=== PATIENT | male | born 1955 | race Caucasian/White ===

== ENCOUNTER 2023-09-22 13:45 | Inpatient (IN) | payer MEDICARE, MEDICAID, SELFPAY ==
[2023-09-22] VITALS (17 sets, daily range): BP systolic 94–166; BP diastolic 46–86; PULSE 59–101; RESP 16–20; TEMP 36.5–37.1; O2SAT 95–97; BMI 181.2; BMI 27.8
[2023-09-22] MEDS: HEPARIN 1,000 UNITS/500ML NS (CATH LAB) 3000 UNIT IV (14:42)
[2023-09-22] MEDS: diphenhydrAMINE 50MG/ML VIAL 50 MG IV (14:42)
[2023-09-22] MEDS: LIDOCAINE 1% 10ML MDV 20 ML IJ (14:42)
[2023-09-22] MEDS: HEPARIN 1,000 UNITS/ML 10ML VIAL (CATH LAB) 10000 UNIT IV (14:42)
[2023-09-22] MEDS: NITROGLYCERIN 800MCG/8ML SYR (CATH LAB) 800 MCG IA (14:42)
[2023-09-22] MEDS: VERAPAMIL 2.5MG/ML 2ML VIAL 2.5 MG IV (14:42)
[2023-09-22] MEDS: 0.9 % SODIUM CHLORIDE 500 ML 25 ML IV (14:43)
[2023-09-22] MEDS: MIDAZOLAM HCL 1MG/1ML 5ML VIAL 1 MG IV (14:43)
[2023-09-22] MEDS: FENTANYL 100MCG/2ML VIAL 50 MCG IV (14:43)
--- NOTE | 2023-09-22 14:47 | IR_ITS ---
APPROVED REPORT Patient Location: Emergent Machine Adjuster: LUIS FERNANDO Ramos RT (R) PROCEDURES Left heart catheterization Left ventriculogram Selective coronary angiogram Mechanical thrombectomy to the mid LAD Drug-eluting stent deployment to the proximal mid and distal LAD in a contiguous manner with 4 contiguous drug-eluting stents Drug-eluting stent deployment to the ostial proximal ramus intermedius Attempted angioplasty of a chronically occluded dominant right coronary INDICATION Acute anterior ST elevation myocardial infarction, Coronary artery disease Informed consent was obtained prior to the procedure. COMPLICATIONS NONE Estimated Blood Loss: LESS THAN 10 ML TECHNIQUE One percent lidocaine used to anesthetize the right anterior aspect of the wrist. The right radial artery was accessed via the Seldinger technique. A 6 Argentine sheath was placed in the right radial artery. 2.5 mg of Verapamil, 800 mcg of nitroglycerin, 1mg Lidocaine and 5000 U Heparin were given through the arterial sheath. The papa catheter was also used to perform left heart catheterization, left ventriculogram and selective coronary angiogram. At the end the diagnostic angiogram the guide catheter was placed in the left main artery followed by Choice PT extra-support wire being pushed through the LAD occlusion. A 2.5 mm balloon was used to predilate the stenosis in the LAD. A 3 mm x 30 mm [place] frontier stent was deployed in the proximal to mid LAD reducing the occlusion. Following this a 2.5 x 38 mm [place] frontier stent was placed distal to the for stent yet still overlapping the stent deployed at 12 bc. The balloon was brought back and deployed at 22 bc to mesh the 2 stents. An additional 2 mm x 30 mm Karl[place] frontier stent was placed distal to the 2.5 mm stent yet still overlapping and deployed at 14 bc. The balloon was brought back and deployed at 22 bc to mesh the 2 stents. An additional 4 mm x 15 mm Karlos frontier stent was placed in the ostial proximal LAD and deployed at 20 bc. The balloon was advanced and deployed at 20 bc to further post dilate the proximal and midportion of the 3 mm stent. An additional wire was placed into the jailed ramus intermedius and a 2 mm balloon was used to open the struts going into the ramus intermedius. A 3 mm x 12 mm [place] frontier stent was deployed at 20 bc in the ostial proximal segment of the ramus intermedius which extended back into the LAD. A 4 mm x 12 mm compliant balloon was deployed at 18 bc in the proximal and mid LAD to push the struts of the ramus intermedius out of the LAD proper. Excellent angiographic results were obtained. APRIL 0 flow was present down the LAD at the beginning of the procedure with APRIL-3 flow at the end of the procedure. Likewise the ramus intermedius had APRIL-3 flow before and after the procedure. Following this 800 mcg of intracoronary nitroglycerin was administered into the LAD system. The apparatus was removed and the guide catheter was placed on the right coronary artery. A Choice PT extra-support wire was used to push against the occlusion. A 2.0 x 12 mm balloon was then advanced however the wire and balloon would not push through the chronically occluded right coronary artery. After it was apparent this was a chronic occlusion the apparatus was removed the sheath was removed and hemostasis was achieved using TR banding patient was transferred to the postop holding in stable condition ANGIOGRAPHIC RESULTS The left main artery Normal The left anterior descending artery Initially had 50% stenosis followed by an acute occlusion distal to a large septal survey director. Following revascularization the entire LAD was widely patent all the way into the apex. Large septal survey director collateralized the distal right coronary artery and posterior descending artery. A large ramus intermedius had a proximal 80 to 90% stenosis preprocedure after procedure the ramus intermedius was widely patent The circumflex artery Is nondominant yet still large and gives rise to a medium sized first obtuse marginal artery which has mild 30% stenosis. 2 medium to large second and third obtuse marginal arteries are widely patent The right coronary artery Is dominant and occluded immediately distal to a large RV marginal branch. The distal vessel fills via right to right collaterals as well as [id number] collaterals The MART ventriculogram reveals Dilated ventricle mid anterior apical akinesis estimated ejection fraction 20% The left ventricular end-diastolic pressure 20 mmHg IMPRESSION Acute anterior ST elevation myocardial infarction as described above with successful reconstruction and revascularization of the proximal mid and distal LAD reducing 100% occlusion to 0% with 4 contiguous drug-eluting stents Successful stenting of a severely diseased ostial ramus intermedius severe to critical disease reduced to 0% with 1 drug-eluting stent Attempted angioplasty of a chronically occluded right coronary artery which did not open the chronic occlusion therefore the vessel was left alone and remains chronically occluded and chronically collateralized via right to right and left to right collaterals Severe left ventricular dysfunction with large regional wall motion abnormality Borderline elevated LVEDP PLAN 1. Brilinta 90 twice daily plus aspirin 81 mg daily 2. Start Entresto once hemodynamically stable 3. Avoid diuretics at this point given normal to slightly elevated LVEDP 4. High intensity statin with goal LDL of 55 5. Echocardiogram tomorrow morning 6. Arrange for LifeVest prior to discharge home 7. Start beta-blockers after patient on stable dose of Entresto 8. Supportive care 9. Avoidance of tobacco products Electronically signed by : Vinh Gutierrez MD 09/22/2023 15:01:17
[2023-09-22] MEDS: IOPAMIDOL-370 (76%);100ML BOTTLE 205 ML IV (15:18)
[2023-09-22 15:19] LABS: CATHL Activated Clotting Time 254 SEC (74-125)
--- NOTE | 2023-09-22 15:25 | PC.NURSE ---
arrived by ricker from [employer] [facility]
--- NOTE | 2023-09-22 15:54 | P.HP_ITS ---
History of Present Illness *Admission Date: 09/22/23 *Reason for visit:: chest pain *History of present illness: Mr. Sanderson is a 68-year-old male with past medical history of previous MIs approximately 16 and 20 years ago with [address] already, CAD, depression, diabetes, hyperlipidemia, HIV. He presented to outside hospital with onset of chest pain. Found to be having a STEMI and was transferred to [facility] for further management. Taken urgently to the Service Establishment Attendant with intervention and placement of 4 stents. Medicine consulted for admission after successful PCI. Further history elicited from patient after arriving to the floor. States that he began to have pain yesterday after mowing. [place] like a burning in his chest, took some Maalox and it resolved. This is around dinnertime per his report. He had pain come back last night that kept him up most of the night. Unclear the exact timeframe of when that began but the pain started as burning in his epigastric region and then spread to pressure-like sensation across his chest and radiated up to his left jaw. He tried to sleep it off but could not go to sleep. Came to the ER at [place] this morning because of the persistent pain. Found to be having a heart attack with EKG showing acute MN and anterior and inferior leads. High-sensitivity troponin of 18,500. STEMI alert was activated and was taken straight to the Service Establishment Attendant at [facility] for intervention. He denies any chest pain at this time. No shortness of breath. Stable on room air. States he is feeling better. No nausea or upset stomach. Denies any confusion. Alert and oriented x 4. Very clear during discussion that his grand daughter is his POA and surrogate if he is unable to make decisions for himself. Patient was loaded with 324 mg of aspirin and 90 mg of Brilinta in the ER at [facility]. [facility] Disclaimer: The information contained in this section may have been updated after the patient was seen, as this information can be updated by other users. Medical History Hyperlipidemia Hypertension Myocardial infarct Diabetes mellitus CVA (cerebral vascular accident) CAD (coronary artery disease) History of left heart catheterization (LHC) Surgical History H/O inguinal hernia repair History of cholecystectomy History of appendectomy History of left hip replacement History of knee replacement Family History Other No significant family history Social History Smoking Status: Current every day smoker alcohol intake: current current occupational status: retired Travel in the last 8 weeks: None Review of Systems Review of Systems Review of systems (narrative): 14 point review of systems performed, pertinent positives and negatives as per [facility] Meds Home Medications and Allergies Home Medications Medication Instructions Recorded Confirmed Type atorvastatin 80 mg tablet 80 mg PO DAILY 09/22/23 09/22/23 History bupropion HCl 150 mg tablet,12 hr 150 mg PO DAILY 09/22/23 09/22/23 History sustained-release dolutegravir 50 mg-lamivudine 300 1 tab PO DAILY 09/22/23 09/22/23 History mg tablet (Dovato) donepezil 5 mg tablet 5 mg PO DAILY 09/22/23 09/22/23 History ezetimibe 10 mg tablet 10 mg PO DAILY 09/22/23 09/22/23 History famotidine 20 mg tablet 20 mg PO BID 09/22/23 09/22/23 History fenofibrate 54 mg tablet 54 mg PO DAILY 09/22/23 09/22/23 History hydrochlorothiazide 25 mg tablet 25 mg PO DAILY 09/22/23 09/22/23 History metformin 500 mg tablet,extended 500 mg PO BID 09/22/23 09/22/23 History release 24 hr methocarbamol 500 mg tablet 500 mg PO BID 09/22/23 09/22/23 History mirtazapine 7.5 mg tablet 7.5 mg PO DAILY 09/22/23 09/22/23 History oxybutynin chloride 5 mg 5 mg PO DAILY 09/22/23 09/22/23 History tablet,extended release 24 hr quetiapine 100 mg tablet 100 mg PO DAILY 09/22/23 09/22/23 History quetiapine 50 mg tablet 50 mg PO DAILY 09/22/23 09/22/23 History tamsulosin 0.4 mg capsule 0.4 mg PO DAILY 09/22/23 09/22/23 History New Prescriptions to Start Prescriptions: Allergies Allergy/AdvReac Type Severity Reaction Status Date / Time amantadine Allergy Mild Verified 09/22/23 14:02 abciximab [From Reopro] Allergy Verified 09/22/23 16:26 cefaclor [From Ceclor] Allergy Verified 09/22/23 16:26 ofloxacin [From Floxin] Allergy Verified 09/22/23 16:26 Penicillins Allergy Verified 09/22/23 16:26 vancomycin Allergy Verified 09/22/23 16:26 Exam Data for Last 24 hours Vital signs and Labs for Last 24 Hours: Temp Pulse Resp BP Pulse Ox O2 Del Method 97.9 F 82 18 100/59 L 95 Room Air 09/22/23 15:00 09/22/23 15:15 09/22/23 15:15 09/22/23 15:15 09/22/23 15:15 09/22/23 15:15 Laboratory Results - last 24 hr 09/22/23 14:30: Activated Clotting Time 254 H* I & O for Last 24 hours: Intake & Output 09/19/23 09/20/23 09/21/23 09/22/23 23:59 23:59 23:59 23:59 Weight 78.103 kg Constitutional Constitutional: no acute distress, average body habitus, chronically ill appearing and cooperative *Routine HEENT Exam Head: Present normocephalic Eye: Present EOMI and PERRL ENT: Present mucous membranes moist Comments: Edentulous *Routine Neck Exam Neck: Present supple; Absent lymphadenopathy *Routine Respiratory Exam Respiratory: Present CTA bilaterally; Absent rhonchi, wheezes or crackles *Routine Cardiovascular Exam Cardiovascular: Present RRR *Routine Abdominal Exam Abdominal: Present soft and normoactive bowel sounds; Absent tenderness *Routine Rectal Exam Rectal:: deferred *Routine Genitalia Exam Genitalia:: deferred *Routine Extremities Exam Extremities: Absent cyanosis, clubbing or edema *Routine Skin Exam Skin: Present warm; Absent rash *Routine Neurological Exam Neurological: Present alert, oriented X3 and moving all extremities; Absent altered mental status Routine Psychiatric Exam Psychiatric: Present normal affect Assessment and Plan *Assessment and plan (1) STEMI (ST elevation myocardial infarction): Status: Acute Category: Medical Code(s): I21.3 - ST elevation (STEMI) myocardial infarction of unspecified site (2) CAD (coronary artery disease): Status: Acute Category: Medical Code(s): I25.10 - Atherosclerotic heart disease of [place] coronary artery without angina pectoris (3) Depression: Status: Chronic Category: Medical Code(s): F32.A - Depression, unspecified (4) HIV (human immunodeficiency virus infection): Status: Chronic Category: Medical Code(s): B20 - Human immunodeficiency virus [HIV] disease (5) HLD (hyperlipidemia): Status: Acute Category: Medical Code(s): E78.5 - Hyperlipidemia, unspecified (6) Diabetes mellitus: Status: Chronic Category: Medical Code(s): E11.9 - Type 2 diabetes mellitus without complications (7) Tobacco use disorder: Status: Acute Category: Medical Code(s): F17.200 - Nicotine dependence, unspecified, uncomplicated Plan 68-year-old male with previous history of MIs, CAD, depression, HIV, diabetes, hyperlipidemia. Presented to outside hospital with STEMI. Was transferred to [facility] for intervention. Taken to the Service Establishment Attendant with placement of 5 stents. Achieved improved flow. Necessitating admission and monitoring for the next 48 hours. Discussed case with cardiology, request admission for monitoring on telemetry and given high risk of cardiac arrhythmias. Medicine agreed to admit for further management. Problems addressed as follows: STEMI CAD hyperlipidemia -Presented with STEMI, ST elevations and inferior and anterior leads. Found to have lesions in the LAD. 5 stents placed. See cath report for full details. - Continue aspirin 81 mg daily and Brilinta 90 mg twice daily -Cardiology consulted and assisting with care -Necessitates monitoring for at least 48 hours on telemetry -Continue high intensity statin 80 mg Lipitor. -Lipid panel ordered for the morning. CBC, CMP, magnesium ordered for the morning. -Echo pending in the morning -Will consider addition of goal-directed therapies including Entresto and beta- blockers pending echo findings and stability of cardiac function over the coming days. History of HIV: continued Dovato per home regimen, reports well-controlled with undetectable viral load. Compliant with medication. Positive for over 30 years History of diabetes on metformin, A1c 5.5, well-controlled, TSH pending. Sliding scale insulin with fingersticks ACHS. Resume metformin 500 mg twice daily History of depression and sleep disorder: Will new Seroquel, Wellbutrin, mirtazapine Continue donepezil for memory Initiate pantoprazole for GERD/GI protection. Takes famotidine at home. Tobacco use disorder: Smokes 7 cigarettes a day. Initiate on nicotine patch daily 14 mg as needed Discussion about surgery decision maker, his granddaughter is his POA. And does not want anyone to know his medical history or situation outside of his granddaughter, himself, and his care team. Explicit about the information that he wants shared with family. Full code Cardiac diet Heparinized in Service Establishment Attendant
[2023-09-22 16:57] LABS: Basophils # 0.2 K/mm3 (0-0.2); Basophils % 1.7 % (0.1-2.0); Eosinophils # 0.1 K/mm3 (0.0-0.4); Eosinophils % 0.7 % (0.1-12.0); Hematocrit 42.3 % (42.0-52.0); Hemoglobin 13.8 g/dL (14.1-18.0); Lymphocytes # 2.4 K/mm3 (0.7-4.5); Lymphocytes % 22.7 % (10-50); Mean Corpuscular HGB Conc 32.7 g/dL (31.8-35.4); Mean Corpuscular Hemoglobin 29.9 pg (27.0-31.2); Mean Corpuscular Volume 91.3 fl (80-94); Mean Platelet Volume 8.5 fl (7.4-10.4); Monocytes # 0.6 K/mm3 (0.1-1.0); Monocytes % 5.3 % (1.7-9.3); Neutrophils # 7.4 K/mm3 (1.8-7.8); Neutrophils % 69.5 % (37.0-80.0); Platelet Count 145 K/mm3 (142-424); Red Blood Count 4.63 M/mm3 (4.60-6.20); Red Cell Distribution Width 15.1 % (11.5-17.5); White Blood Count 10.6 K/mm3 (4.8-10.8)
[2023-09-22 17:04] LABS: Chloride 103 mmol/L (98-107); Potassium 3.6 mmoL/L (3.5-5.1); Sodium 135 mmol/L (136-145)
[2023-09-22 17:07] LABS: Anion Gap 12.6 mEq/L (5-15); Blood Urea Nitrogen 14 mg/dl (9-20); Carbon Dioxide 23 mmol/L (22.0-30.0); Creatinine Clearance Estimated 78 mL/min (50-200); Estimated Glomerular Filt Rate 96 ml/min (>60); GFR (African American) 116 ML/MIN (>60)
[2023-09-22 17:08] LABS: Calcium 9.2 mg/dl (8.4-10.2); Glucose 195 mg/dl (74-100)
[2023-09-22 17:12] LABS: Hemoglobin A1C 5.5 % (4.0-6.0)
[2023-09-22 17:13] LABS: POC Glucose,Bedside 184 (70-110)
[2023-09-22] MEDS: humaLOG 100 UNITS/ML 3ML VIAL (SSI) SQ (17:14)
[2023-09-22] MEDS: NICOTINE 14MG/24HRS PATCH 14 MG TD (17:14)
[2023-09-22 17:38] LABS: Thyroid Stimulating Hormone 1.34 uIU/mL (0.465-4.68)
--- NOTE | 2023-09-22 18:51 | PC.NURSE ---
1700 2 ml of air removed, no hematoma noted, no bleeding noted 1715 2 ml of air removed, no hematoma noted, no bleeding noted 1745 2 ml of air removed, no hematoma noted, no bleeding noted 1800 2 ml of air removed, no hematoma noted, no bleeding noted 1815 2 ml of air removed, no hematoma noted, no bleeding noted 1830 2 ml of air removed, no hematoma noted, no bleeding noted 1845 2 ml of air removed, no hematoma noted, no bleeding noted
[2023-09-22 20:41] LABS: POC Glucose,Bedside 130 (70-110)
[2023-09-22] MEDS: SACUBITRIL/VALSARTAN 24-26MG TABLET 1 EACH PO (21:11)
[2023-09-22] MEDS: ATORVASTATIN 40MG TABLET 80 MG PO (21:12)
[2023-09-22] MEDS: TAMSULOSIN 0.4MG CAPSULE 0.400000000000000022 MG PO (21:12)
[2023-09-22] MEDS: PATIENT'S OWN HOME MEDICATION (Quetiapine 50 mg tablet) 50 EACH PO (21:13)
[2023-09-22] MEDS: PANTOPRAZOLE 40MG TABLET 40 MG PO (21:13)
[2023-09-22] MEDS: PATIENT'S OWN HOME MEDICATION (Mirtazapine 7.5 mg tablet) 7.5 EACH PO (21:13)
[2023-09-23] VITALS (8 sets, daily range): BP systolic 97–121; BP diastolic 60–75; PULSE 90–104; RESP 16–18; TEMP 36.6–37.2; O2SAT 90–93; BMI 26.9
[2023-09-23] MEDS: TRAMADOL 50MG TABLET 50 MG PO (00:10)
--- NOTE | 2023-09-23 04:27 | PC.NURSE ---
Patient has had a good night. Patient did complain on pain at the cath site. Site was observed and found no bleeding, pulse were +2, and no hematoma. Provider was notified and medication was placed. No other complaints. Family has remained at bedside
[2023-09-23] MEDS: humaLOG 100 UNITS/ML 3ML VIAL (SSI) SQ ×3 (05:34→16:51)
[2023-09-23 05:41] LABS: POC Glucose,Bedside 181 (70-110)
[2023-09-23 06:14] LABS: Basophils # 0.1 K/mm3 (0-0.2); Basophils % 0.6 % (0.1-2.0); Eosinophils # 0.1 K/mm3 (0.0-0.4); Eosinophils % 0.7 % (0.1-12.0); Hematocrit 43.4 % (42.0-52.0); Hemoglobin 14.4 g/dL (14.1-18.0); Lymphocytes # 2.2 K/mm3 (0.7-4.5); Lymphocytes % 24.1 % (10-50); Mean Corpuscular HGB Conc 33.2 g/dL (31.8-35.4); Mean Corpuscular Hemoglobin 30.5 pg (27.0-31.2); Mean Corpuscular Volume 91.9 fl (80-94); Mean Platelet Volume 8.8 fl (7.4-10.4); Monocytes # 0.8 K/mm3 (0.1-1.0); Monocytes % 9.1 % (1.7-9.3); Neutrophils # 5.9 K/mm3 (1.8-7.8); Neutrophils % 65.5 % (37.0-80.0); Platelet Count 166 K/mm3 (142-424); Red Blood Count 4.72 M/mm3 (4.60-6.20); Red Cell Distribution Width 15.3 % (11.5-17.5)
[2023-09-23 06:24] LABS: Alanine Aminotransferase 66 U/L (12-78); Albumin Level 4.3 g/dl (3.5-5.0); Albumin/Globulin Ratio 1.5 (1.1-1.8); Alkaline Phosphatase 78 U/L (38-126); Anion Gap 13.5 mEq/L (5-15); Aspartate Amino Transferase 230 U/L (17-59); Bilirubin,Total 1.2 mg/dl (0.2-1.3); Blood Urea Nitrogen 18 mg/dl (9-20); Calcium 9.3 mg/dl (8.4-10.2); Carbon Dioxide 25 mmol/L (22.0-30.0); Chloride 100 mmol/L (98-107); Chol/HDL Ratio 4.1 (1-3.5); Cholesterol 111 mg/dl (140-200); Creatinine Clearance Estimated 76 mL/min (50-200); Estimated Glomerular Filt Rate 74 ml/min (>60); GFR (African American) 90 ML/MIN (>60); Globulin 2.9 g/dL (1.3-3.2); Glucose 171 mg/dl (74-100); HDL Cholesterol 27 mg/dl (40-60); Magnesium 2.1 mg/dl (1.6-2.3); Potassium 3.5 mmoL/L (3.5-5.1); Sodium 135 mmol/L (136-145); Total Protein,Serum 7.2 g/dl (6.3-8.2); Triglycerides 139 mg/dl (30-150); VLDL Cholesterol 28 mg/dL (0-40)
--- NOTE | 2023-09-23 08:27 | HMH.PHAINT1 ---
Pharmacy Intervention Comments: MEDICATION RECONCILIATION COMPLETED ON PATIENT USING EXTERNAL FILL HISTORY FROM PHARMACY. -BESSY NICOLE, JORID
[2023-09-23] MEDS: METFORMIN 500MG TABLET 500 MG PO ×2 (09:03→16:53)
[2023-09-23] MEDS: METHOCARBAMOL 500MG TABLET 500 MG PO ×2 (09:03→21:34)
[2023-09-23] MEDS: buPROPion HCl SR 150MG TAB 150 MG PO (09:03)
[2023-09-23] MEDS: SACUBITRIL/VALSARTAN 24-26MG TABLET 1 EACH PO ×2 (09:03→21:36)
[2023-09-23] MEDS: EZETIMIBE 10MG TABLET 10 MG PO (09:03)
[2023-09-23] MEDS: OXYBUTYNIN 5MG TAB 5 MG PO (09:03)
[2023-09-23] MEDS: ASPIRIN EC 81MG TABLET 81 MG PO (09:03)
[2023-09-23 10:09] LABS: Direct LDL Cholesterol 67.31 mg/dL (100-129)
[2023-09-23 12:17] LABS: POC Glucose,Bedside 198 (70-110)
--- NOTE | 2023-09-23 14:46 | P.CONCA_ITS ---
History of Present Illness History of Present Illness Consult date: 09/23/23 Requesting physician: Crow Martinez Consult reason: chest pain and congestive heart failure Chief complaint: chest pain Additional Medical History:: History of present illness: 68 yo WM with hx CAD s/p FL with stenting approx 2003 and 2007. Came with worsening chest discomfort for >1 day initiatially improved with antacids then later becoming more severe and recalcitrant to antacids so he came [facility] ED, dx with AW-STEMI and transferred directly to our clinical lab scientist here where he received 4 stents to LAD and Ramus. 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 I am seeing patient the next day and he reports he is feeling well with complete resolution of symptoms. His ECHO shows EF is about 30% Patient has stable vitals and labs. [facility] Disclaimer: The information contained in this section may have been updated after the patient was seen, as this information can be updated by other users. Medical History Hyperlipidemia Hypertension Myocardial infarct Diabetes mellitus CVA (cerebral vascular accident) CAD (coronary artery disease) History of left heart catheterization (LHC) Surgical History H/O inguinal hernia repair History of cholecystectomy History of appendectomy History of left hip replacement History of knee replacement Family History Other No significant family history Social History Smoking Status: Current every day smoker alcohol intake: current current occupational status: retired Travel in the last 8 weeks: None Review of Systems Constitutional Constitutional: Denies fatigue and Denies weakness Eyes Eyes: Denies loss of vision ENT Ears, Nose, Mouth, and Throat: Denies hearing loss and Denies vertigo *Cardiovascular Cardiovascular: Reports chest pain, Denies dyspnea and Denies syncope *Respiratory Respiratory: Denies cough and Denies dyspnea *Gastrointestinal Gastrointestinal: Denies change in stool character, Denies nausea and Denies vomiting *Genitourinary Genitourinary: Denies difficulty urinating *Musculoskeletal Musculoskeletal: Denies muscle weakness Integumentary/Breasts Skin/Breast: Denies changing lesions *Neurologic Neurologic: Denies loss of vision, Denies syncope, Denies vertigo and Denies weakness Endocrine Endocrine: Denies fatigue Exam Data for Last 24 hours Vital signs and Labs for Last 24 Hours: Temp Pulse Resp BP Pulse Ox O2 Del Method 97.9 F 96 H 16 98/60 L 92 L Room Air 09/23/23 12:00 09/23/23 12:00 09/23/23 12:00 09/23/23 12:00 09/23/23 12:00 09/23/23 13:00 Laboratory Results - last 24 hr 09/22/23 14:30: Activated Clotting Time 254 H* 09/22/23 16:50: WBC 10.6, RBC 4.63, Hgb 13.8 L, Hct 42.3, MCV 91.3, MCH 29.9, MCHC 32.7, RDW 15.1, Plt Count 145, MPV 8.5, Neut % (Auto) 69.5, Lymph % (Auto) 22.7, [place] % (Auto) 5.3, Eos % (Auto) 0.7, Baso % (Auto) 1.7, Neut # (Auto) 7.4, Lymph # (Auto) 2.4, [place] # (Auto) 0.6, Eos # (Auto) 0.1, Baso # (Auto) 0.2, Sod ium 135 L, Potassium 3.6, Chloride 103, Carbon Dioxide 23, Anion Gap 12.6, BUN 14, Creatinine 0.80, Estimated Creat Clear 78, Estimated GFR 96, Est GFR ( Amer) 116, Glucose 195 H, Hemoglobin A1c 5.5, Calcium 9.2, TSH 1.34 09/22/23 17:06: POC Glucose 184 H 09/22/23 20:24: POC Glucose 130 H 09/23/23 05:28: POC Glucose 181 H 09/23/23 05:29: WBC 9.0, RBC 4.72, Hgb 14.4, Hct 43.4, MCV 91.9, MCH 30.5, MCHC 33.2, RDW 15.3, Plt Count 166, MPV 8.8, Neut % (Auto) 65.5, Lymph % (Auto) 24.1, [place] % (Auto) 9.1, Eos % (Auto) 0.7, Baso % (Auto) 0.6, Neut # (Auto) 5.9, Lymph # (Auto) 2.2, [place] # (Auto) 0.8, Eos # (Auto) 0.1, Baso # (Auto) 0.1, Sodium 135 L, Potassium 3.5, Chloride 100, Carbon Dioxide 25, Anion Gap 13.5, BUN 18 D, Creatinine 1.00 D, Estimated Creat Clear 76, Estimated GFR 74, Est GFR ( Amer) 90 D, Glucose 171 H, Calcium 9.3, Magnesium 2.1, Total Bilirubin 1.2, AST 230 H, ALT 66, Alkaline Phosphatase 78, Total Protein 7.2, Albumin 4.3, Globulin 2.9, Albumin/Globulin Ratio 1.5, Triglycerides 139, Cholesterol 111 L, LDL Cholesterol Direct 67.31 L, VLDL Cholesterol 28, HDL Cholesterol 27 L, Cholesterol/HDL Ratio 4.1 H 09/23/23 12:09: POC Glucose 198 H I & O for Last 24 hours: Intake & Output 09/20/23 09/21/23 09/22/23 09/23/23 23:59 23:59 23:59 23:59 Intake Total 240 / 240 960 / 960 Output Total 1450 / 1950 500 / 500 Balance -1210 / -1710 460 / 460 Weight 172 lb 3 oz 167 lb 3.2 oz Constitutional Constitutional: no acute distress and cooperative *Routine HEENT Exam Eye: Present PERRL *Routine Respiratory Exam Respiratory: Present CTA bilaterally; Absent accessory muscle use, wheezes or crackles *Routine Cardiovascular Exam Cardiovascular: Present RRR, Normal S1 and Normal S2; Absent murmur, gallop or rubs Comments: right radial cath site normal on inspection and palpation *Routine Abdominal Exam Abdominal: Present soft; Absent tenderness *Routine Extremities Exam Extremities: Present pulses intact; Absent cyanosis or edema *Routine Skin Exam Skin: Present intact; Absent erythema or wounds *Routine Neurological Exam Neurological: Present alert and oriented X3 Routine Psychiatric Exam Psychiatric: Present cooperative Meds Home Medications and Allergies Home Medications Medication Instructions Recorded Confirmed Type atorvastatin 80 mg tablet 80 mg PO DAILY 09/22/23 09/23/23 History bupropion HCl 150 mg tablet,12 hr 150 mg PO DAILY 09/22/23 09/23/23 History sustained-release dolutegravir 50 mg-lamivudine 300 1 tab PO DAILY 09/22/23 09/23/23 History mg tablet (Dovato) donepezil 5 mg tablet 5 mg PO DAILY 09/22/23 09/23/23 History ezetimibe 10 mg tablet 10 mg PO DAILY 09/22/23 09/23/23 History famotidine 20 mg tablet 20 mg PO BID 09/22/23 09/23/23 History fenofibrate 54 mg tablet 54 mg PO DAILY 09/22/23 09/23/23 History hydrochlorothiazide 25 mg tablet 25 mg PO DAILY 09/22/23 09/23/23 History metformin 500 mg tablet,extended 500 mg PO BID 09/22/23 09/23/23 History release 24 hr methocarbamol 500 mg tablet 500 mg PO BID 09/22/23 09/23/23 History mirtazapine 7.5 mg tablet 7.5 mg PO DAILY 09/22/23 09/23/23 History oxybutynin chloride 5 mg 5 mg PO DAILY 09/22/23 09/23/23 History tablet,extended release 24 hr quetiapine 100 mg tablet 100 mg PO DAILY 09/22/23 09/23/23 History quetiapine 50 mg tablet 50 mg PO DAILY 09/22/23 09/22/23 History tamsulosin 0.4 mg capsule 0.4 mg PO DAILY 09/22/23 09/23/23 History budesonide-formoterol HFA 160 2 puff inhalation BID 09/23/23 09/23/23 History mcg-4.5 mcg/actuation aerosol inhaler New Prescriptions to Start Prescriptions: Allergies Allergy/AdvReac Type Severity Reaction Status Date / Time amantadine Allergy Mild Verified 09/22/23 14:02 abciximab [From Reopro] Allergy Verified 09/22/23 16:26 cefaclor [From Ceclor] Allergy Verified 09/22/23 16:26 ofloxacin [From Floxin] Allergy Verified 09/22/23 16:26 Penicillins Allergy Verified 09/22/23 16:26 vancomycin Allergy Verified 09/22/23 16:26 Assessment and Plan *Assessment and plan (1) STEMI (ST elevation myocardial infarction): Status: Acute Category: Medical Code(s): I21.3 - ST elevation (STEMI) myocardial infarction of unspecified site (2) CAD (coronary artery disease): Status: Acute Category: Medical Code(s): I25.10 - Atherosclerotic heart disease of [place] coronary artery without angina pectoris (3) HIV (human immunodeficiency virus infection): Status: Chronic Category: Medical Code(s): B20 - Human immunodeficiency virus [HIV] disease (4) HLD (hyperlipidemia): Status: Acute Category: Medical Code(s): E78.5 - Hyperlipidemia, unspecified (5) Diabetes mellitus: Status: Chronic Category: Medical Code(s): E11.9 - Type 2 diabetes mellitus without complications (6) Tobacco use disorder: Status: Acute Category: Medical Code(s): F17.200 - Nicotine dependence, unspecified, uncomplicated Plan MV-CAD s/p STEMI and PCI 09/21 - prior DMITRI approx 2003 and 2007 - [facility] here 09/21: LAD 50% and acute occlusion (stented) Ramus 80-90% (stented) RCA (SHUTTLE FINAL INSPECTOR) Severe LV dysfunction - CCS = 0 following stenting - Cont DAPT, Statin. Hold on BB due to LV dysfunction and hypotension - pt will need cardiac rehab at discharge HFrEF - Ischemic Cardiomyopathy - EF 30% following STEMI. No prior imaging for comparison - NYHA = 1-2 - Cont Entresto. Add Farxiga. No Aldactone due to low BP - 90s. Will add later. - pt appears euvolemice - agreeable to LifeVest DM - well controlled with A1C <7 - add Farxiga for CV benefit HLD - not at goal with LDL of 65, goal is <55 - cont high dose statin and zetia, consider PCSK-9 outpatient Htn - low normal here on GDMT for HF HIV status - treated/stable per reporte - standar precautions 09/22 CV summary: Pt CV stable. Awaiting LifeVest approval/placement and monitoring on tele. Likely home tomorrow, 09/23.
[2023-09-23] MEDS: EMPAGLIFLOZIN 10MG TABLET 10 MG PO (15:11)
--- NOTE | 2023-09-23 16:22 | EXP.ACUTE.PN ---
Subjective *Date: 09/23/23 *Time: 16:22 Interval history: Denies any chest pain. No nausea or vomiting. Occasional PVCs felt. Stable on room air. Tolerating p.o. intake. Monitoring on telemetry, continues to have PVCs on telemetry. Medical Exam Vital signs and Labs for Last 24 Hours: Vital Signs Temp Pulse Pulse Resp BP Pulse Ox O2 Del Method 09/23/23 15:00 Room Air 09/23/23 13:00 Room Air 09/23/23 12:00 97.9 F 96 H 16 98/60 L 92 L Room Air 09/23/23 11:00 Room Air 09/23/23 09:00 Room Air 09/23/23 08:00 Room Air 09/23/23 08:00 90 09/23/23 08:00 98 F 91 H 16 98/64 L 90 L Room Air 09/23/23 07:00 Room Air 09/23/23 05:00 Room Air 09/23/23 04:00 98.4 F 93 H 17 121/75 90 L Room Air 09/23/23 04:00 96 H 09/23/23 03:00 Room Air 09/23/23 01:00 Room Air 09/23/23 00:00 99.0 F 99 H 18 108/65 L 92 L Room Air 09/23/23 00:00 100 H 09/22/23 23:00 Room Air 09/22/23 21:45 97 H 20 166/85 H 97 Room Air 09/22/23 21:00 Room Air 09/22/23 20:45 100 H 20 149/81 H 97 Room Air 09/22/23 20:00 101 H 09/22/23 20:00 Room Air 09/22/23 19:45 98.7 F 89 20 125/65 97 Room Air 09/22/23 18:47 Room Air 09/22/23 18:45 59 L 18 139/86 97 Room Air 09/22/23 17:45 87 18 128/72 97 Room Air 09/22/23 17:21 Room Air 09/22/23 17:15 77 18 129/79 96 Room Air 09/22/23 16:45 83 18 120/80 96 Room Air Intake and Output 09/23/23 09/23/23 09/23/23 07:59 15:59 23:59 Intake Total 960 / 960 Output Total 500 / 500 Balance -500 / 460 960 / 460 Intake: Intake, Oral Amount 960 / 960 Output: Output, Urine Amount 500 / 500 Other: Number of Unmeasured Voids 0 Weight 75.841 kg Patient Weight 09/23/23 23:59 Weight 75.841 kg Laboratory Results - last 24 hr 09/22/23 16:50: WBC 10.6, RBC 4.63, Hgb 13.8 L, Hct 42.3, MCV 91.3, MCH 29.9, MCHC 32.7, RDW 15.1, Plt Count 145, MPV 8.5, Neut % (Auto) 69.5, Lymph % (Auto) 22.7, [place] % (Auto) 5.3, Eos % (Auto) 0.7, Baso % (Auto) 1.7, Neut # (Auto) 7.4, Lymph # (Auto) 2.4, [place] # (Auto) 0.6, Eos # (Auto) 0.1, Baso # (Auto) 0.2, Sodium 135 L, Potassium 3.6, Chloride 103, Carbon Dioxide 23, Anion Gap 12.6, BUN 14, Creatinine 0.80, Estimated Creat Clear 78, Estimated GFR 96, Est GFR ( Amer) 116, Glucose 195 H, Hemoglobin A1c 5.5, Calcium 9.2, TSH 1.34 09/22/23 17:06: POC Glucose 184 H 09/22/23 20:24: POC Glucose 130 H 09/23/23 05:28: POC Glucose 181 H 09/23/23 05:29: WBC 9.0, RBC 4.72, Hgb 14.4, Hct 43.4, MCV 91.9, MCH 30.5, MCHC 33.2, RDW 15.3, Plt Count 166, MPV 8.8, Neut % (Auto) 65.5, Lymph % (Auto) 24.1, [place] % (Auto) 9.1, Eos % (Auto) 0.7, Baso % (Auto) 0.6, Neut # (Auto) 5.9, Lymph # (Auto) 2.2, [place] # (Auto) 0.8, Eos # (Auto) 0.1, Baso # (Auto) 0.1, Sodium 135 L, Potassium 3.5, Chloride 100, Carbon Dioxide 25, Anion Gap 13.5, BUN 18 D, Creatinine 1.00 D, Estimated Creat Clear 76, Estimated GFR 74, Est GFR ( Amer) 90 D, Glucose 171 H, Calcium 9.3, Magnesium 2.1, Total Bilirubin 1.2, AST 230 H, ALT 66, Alkaline Phosphatase 78, Total Protein 7.2, Albumin 4.3, Globulin 2.9, Albumin/Globulin Ratio 1.5, Triglycerides 139, Cholesterol 111 L, LDL Cholesterol Direct 67.31 L, VLDL Cholesterol 28, HDL Cholesterol 27 L, Cholesterol/HDL Ratio 4.1 H 09/23/23 12:09: POC Glucose 198 H I & O for Labs for Last 24 Hours: Intake & Output 09/20/23 09/21/23 09/22/23 09/23/23 23:59 23:59 23:59 23:59 Intake Total 240 / 240 960 / 960 Output Total 1450 / 1950 500 / 500 Balance -1210 / -1710 460 / 460 Weight 78.103 kg 75.841 kg Constitutional: Present no acute distress, average body habitus and cooperative Head: Present atraumatic and normocephalic ENT: Present normal exam Neck: Present normal inspection Respiratory: Present normal respiratory effort; Absent rhonchi, wheezes or crackles Cardiac: Present Reg Rate and Rhythm Comment:: Occasional ectopic beats GI: Present normal bowel sounds; Absent tenderness Extremities: Present normal inspection and full ROM Skin: Present intact; Absent erythema Neuro: Present Grossly Intact, alert, awake, oriented x 3 and moves all extremities Assessment and Plan *Assessment and plan (1) STEMI (ST elevation myocardial infarction): Status: Acute Category: Medical Code(s): I21.3 - ST elevation (STEMI) myocardial infarction of unspecified site (2) HFrEF (heart failure with reduced ejection fraction): Status: Acute Category: Medical Code(s): I50.20 - Unspecified systolic (congestive) heart failure (3) CAD (coronary artery disease): Status: Acute Category: Medical Code(s): I25.10 - Atherosclerotic heart disease of [place] coronary artery without angina pectoris (4) Depression: Status: Chronic Category: Medical Code(s): F32.A - Depression, unspecified (5) HIV (human immunodeficiency virus infection): Status: Chronic Category: Medical Code(s): B20 - Human immunodeficiency virus [HIV] disease (6) HLD (hyperlipidemia): Status: Acute Category: Medical Code(s): E78.5 - Hyperlipidemia, unspecified (7) Diabetes mellitus: Status: Chronic Category: Medical Code(s): E11.9 - Type 2 diabetes mellitus without complications (8) Tobacco use disorder: Status: Acute Category: Medical Code(s): F17.200 - Nicotine dependence, unspecified, uncomplicated Plan 68-year-old male with previous history of MIs, CAD, depression, HIV, diabetes, hyperlipidemia. Presented to outside hospital with STEMI. Was transferred to [facility] for intervention. Taken to the Director Translation with placement of 5 stents. Achieved improved flow. Necessitating admission and monitoring for the next 48 hours. Discussed case with cardiology, request admission for monitoring on telemetry and given high risk of cardiac arrhythmias. Medicine agreed to admit for further management. Occasional PVCs overnight, no acute events otherwise. Monitor through Saturday. Anticipate discharge tomorrow. Problems addressed as follows: STEMI CAD hyperlipidemia Acute HFrEF -Presented with STEMI, ST elevations and inferior and anterior leads. Found to have lesions in the LAD. 5 stents placed. See cath report for full details. - Continue aspirin 81 mg daily and Brilinta 90 mg twice daily -Cardiac, appreciate their recommendations. Discussed case this morning. Given heart failure, will add Farxiga for CV benefit. EF on echo of 30% following STEMI. Will continue Entresto. No Aldactone due to low BPs. Will need LifeVest upon discharge. -Continue to monitor for at least 48 hours on telemetry post STEMI. Anticipate discharge in the next day. -Continue high intensity statin 80 mg Lipitor. -LDL controlled at 65. CBC, CMP, magnesium ordered for the morning. History of HIV: continued Dovato per home regimen, reports well-controlled with undetectable viral load. Compliant with medication. Positive for over 30 years History of diabetes on metformin, A1c 5.5, well-controlled, TSH 1.3. Sliding scale insulin with fingersticks ACHS. Resume metformin 500 mg twice daily History of depression and sleep disorder: continue Seroquel, Wellbutrin, mirtazapine Continue donepezil for memory Pantoprazole for GERD/GI protection. Takes famotidine at home. Tobacco use disorder: Smokes 7 cigarettes a day. Initiate on nicotine patch daily 14 mg as needed Discussion about surrogate decision maker, his granddaughter is his POA. And does not want anyone to know his medical history or situation outside of his granddaughter, himself, and his care team. Explicit about the information that he wants shared with family. Full code Cardiac diet
[2023-09-23 16:25] LABS: POC Glucose,Bedside 182 (70-110)
--- NOTE | 2023-09-23 16:42 | CA_ITS ---
APPROVED REPORT EXAM: Comprehensive 2D, Doppler, and color-flow Echocardiogram Parker: Isabel Garibay CRT Ht: 5 ft 6 in Wt: 172lbs BSA: 1.88 BP: 100/59 mmHg Indications: STEMI, Diabetes, CAD, Hyperlipidemia, Hypertension/HDD, HIV, 4 STENTS 09/22/23, HX CVA AND OLD CT 2D Dimensions LA Volume 33.50 mL LA Volume Index 17.40 mL/m2 (M/F) 16-34 M-Mode Dimensions RVDd 2.31 cm (0.9-2.6) LA Diam 4.06 cm (1.9-4.0) LVDd 4.57 cm (3.5-5.7) LVDs 4.05 cm (3.5-5.7) IVSd 1.28 cm (0.6-1.1) PWd 1.39 cm (0.6-1.1) EF (Teich) 24.80% FS 11.40% EDV (Teich) 95.90 mL TAPSE 2.47 (<1.7) ESV (Teich) 72.10 mL LV Diastology E Decel Time 157 (160-240 msec) E/A Ratio 0.72 MED A' 6.30 cm/s LAT A' 10.50 cm/s Aortic Valve DILMA Index 1.08 cm2/m2 AoV Peak Gigi. 188.0 (50-130 cm/s) AI PHT 384.00 ms AO Peak GR. 14.20 mmHg AO Mean GR. 8.50 (<5 mmHg) AO VTI 31.0 (18-25 cm) DILMA (VTI) 2.07 (2.5-4.5 cm2) Mitral Valve MV E Max Gigi. 65.0 (40-130 cm/s) MV A Velocity 91.0 (40-130 cm/s) E/A Ratio 0.72 MV PHT 46.0 ms Pulmonary Valve PV Peak Velocity 62.0 (50-150 cm/s) Tricuspid Valve TR P. Velocity 226.00 cm/s RAP Estimate 10.00 mmHg RVSP 30.40 mmHg Left Ventricle The left ventricle is normal size. Left ventricular systolic function is moderate to severely decreased. There is increased LV wall thickness. There is severe hypokinesis of the mid to distal septal, anteroseptal, and inferoseptal LV hernandez. Grade 2 diastolic dysfunction. LVEF is 30%. Right Ventricle The right ventricle is normal size. The right ventricular systolic function is normal. Atria The left atrium size is normal. The right atrium size is normal. There is no Doppler evidence of interatrial shunt. Aortic Valve The aortic valve is mildly thickened. Aortic sclerosis, but no evidence of aortic stenosis. Trace aortic regurgitation. Mitral Valve The mitral valve leaflets are mildly thickened. No evidence of mitral valve stenosis. Trace mitral regurgitation. Tricuspid Valve The tricuspid valve leaflets are thin and pliable. Trace tricuspid regurgitation. RVSP is normal. Pulmonic Valve The pulmonary valve is normal in structure. Trace pulmonic regurgitation. Great Vessels The aortic root is normal in size. The ascending aorta is normal in size. IVC is normal in size and collapses >50% with inspiration. Pericardium There is no pericardial effusion. Other Information Study Quality: Fair Conclusion Moderate to severe reduction in LV systolic function (LVEF 30%). Severe hypokinesis of the mid to distal septal, anteroseptal, and inferoseptal LV hernandez. Grade 2 diastolic dysfunction. No significant valvular stenosis or regurgitation. Electronically signed by : Angeline Hollingsworth MD 09/24/2023 11:32:46
[2023-09-23 20:44] LABS: POC Glucose,Bedside 147 (70-110)
[2023-09-23] MEDS: ATORVASTATIN 40MG TABLET 80 MG PO (21:33)
[2023-09-23] MEDS: MIRTAZAPINE 15 MG TABLET 7.5 MG PO (21:34)
[2023-09-23] MEDS: DONEPEZIL 5MG TAB 5 MG PO (21:34)
[2023-09-23] MEDS: PANTOPRAZOLE 40MG TABLET 40 MG PO (21:35)
[2023-09-23] MEDS: TAMSULOSIN 0.4MG CAPSULE 0.400000000000000022 MG PO (21:36)
[2023-09-23] MEDS: QUETIAPINE 100MG TABLET 50 MG PO (21:36)
[2023-09-23] MEDS: TICAGRELOR 90MG TABLET 90 MG PO (22:53)
[2023-09-24] VITALS: BP 106/52; PULSE 94; PULSE 96; RESP 16; TEMP 36.9; O2SAT 92
[2023-09-24 04:00] VITALS: BP 101/54; PULSE 46; PULSE 92; RESP 18; TEMP 36.8; O2SAT 92; BMI 26.7
--- NOTE | 2023-09-24 04:40 | PC.NURSE ---
no reports of chest pain, n/v. radial site c/d/i
[2023-09-24 05:58] LABS: POC Glucose,Bedside 169 (70-110)
[2023-09-24] MEDS: humaLOG 100 UNITS/ML 3ML VIAL (SSI) SQ ×2 (06:13→16:44)
[2023-09-24 06:34] LABS: Basophils # 0.1 K/mm3 (0-0.2); Basophils % 0.5 % (0.1-2.0); Eosinophils # 0.1 K/mm3 (0.0-0.4); Eosinophils % 1.4 % (0.1-12.0); Hematocrit 43.2 % (42.0-52.0); Hemoglobin 14.2 g/dL (14.1-18.0); Lymphocytes # 2.6 K/mm3 (0.7-4.5); Lymphocytes % 27.6 % (10-50); Mean Corpuscular Hemoglobin 30.7 pg (27.0-31.2); Mean Corpuscular Volume 93.2 fl (80-94); Mean Platelet Volume 9.1 fl (7.4-10.4); Monocytes # 0.7 K/mm3 (0.1-1.0); Monocytes % 7.7 % (1.7-9.3); Neutrophils % 62.8 % (37.0-80.0); Platelet Count 156 K/mm3 (142-424); Red Blood Count 4.63 M/mm3 (4.60-6.20); White Blood Count 9.5 K/mm3 (4.8-10.8)
[2023-09-24 07:08] LABS: Alanine Aminotransferase 48 U/L (12-78); Albumin Level 4.1 g/dl (3.5-5.0); Albumin/Globulin Ratio 1.4 (1.1-1.8); Alkaline Phosphatase 76 U/L (38-126); Anion Gap 12.5 mEq/L (5-15); Aspartate Amino Transferase 87 U/L (17-59); Bilirubin,Total 1.1 mg/dl (0.2-1.3); Blood Urea Nitrogen 24 mg/dl (9-20); Calcium 9.4 mg/dl (8.4-10.2); Carbon Dioxide 25 mmol/L (22.0-30.0); Chloride 101 mmol/L (98-107); Creatinine Clearance Estimated 69 mL/min (50-200); Estimated Glomerular Filt Rate 67 ml/min (>60); GFR (African American) 81 ML/MIN (>60); Globulin 2.9 g/dL (1.3-3.2); Glucose 158 mg/dl (74-100); Magnesium 2.2 mg/dl (1.6-2.3); Potassium 3.5 mmoL/L (3.5-5.1); Sodium 135 mmol/L (136-145)
[2023-09-24 08:00] VITALS: BP 95/50; PULSE 62; RESP 16; TEMP 36.6; O2SAT 91
[2023-09-24] MEDS: EZETIMIBE 10MG TABLET 10 MG PO (08:21)
[2023-09-24] MEDS: SACUBITRIL/VALSARTAN 24-26MG TABLET 1 EACH PO (08:21)
[2023-09-24] MEDS: buPROPion HCl SR 150MG TAB 150 MG PO (08:21)
[2023-09-24] MEDS: ASPIRIN EC 81MG TABLET 81 MG PO (08:21)
[2023-09-24] MEDS: OXYBUTYNIN 5MG TAB 5 MG PO (08:22)
[2023-09-24] MEDS: EMPAGLIFLOZIN 10MG TABLET 10 MG PO (08:22)
[2023-09-24] MEDS: METHOCARBAMOL 500MG TABLET 500 MG PO (08:22)
[2023-09-24] MEDS: METFORMIN 500MG TABLET 500 MG PO (08:22)
[2023-09-24] MEDS: TICAGRELOR 90MG TABLET 90 MG PO (08:22)
--- NOTE | 2023-09-24 10:30 | XR_ITS ---
FINAL REPORT CLINICAL HISTORY: CHF, COPD COMPARISON: 09/22/2023 FINDINGS: A single portable view of the chest was obtained. The heart size and pulmonary vascularity are within normal limits. The mediastinum is within normal limits. Linear opacities in the left lung base are consistent with atelectasis. The bony thorax is intact. IMPRESSION: Left lung base atelectasis. Reviewed, Interpreted and Dictated by Domenico Toussaint III, MD Transcribed by Sabina Mccray Authenticated and [facility]
[2023-09-24 11:18] LABS: POC Glucose,Bedside 147 (70-110)
[2023-09-24 11:20] LABS: NT Pro Brain Natriuretic Pep. 1210 pg/mL (0-125)
--- NOTE | 2023-09-24 11:32 | P.DS_ITS ---
General Admission date:: 09/22/23 Discharge date: 09/24/23 HPI HPI HPI: Mr. Sanderson is a 68-year-old male with past medical history of previous MIs approximately 16 and 20 years ago with [address] already, CAD, depression, diabetes, hyperlipidemia, HIV. He presented to outside hospital with onset of chest pain. Found to be having a STEMI and was transferred to [facility] for further management. Taken urgently to the [facility] with intervention and placement of 4 stents. Medicine consulted for admission after successful PCI. Further history elicited from patient after arriving to the floor. States that he began to have pain yesterday after mowing. [place] like a burning in his chest, took some Maalox and it resolved. This is around dinnertime per his report. He had pain come back last night that kept him up most of the night. Unclear the exact timeframe of when that began but the pain started as burning in his epigastric region and then spread to pressure-like sensation across his chest and radiated up to his left jaw. He tried to sleep it off but could not go to sleep. Came to the ER at [place] this morning because of the persistent pain. Found to be having a heart attack with EKG showing acute WA and anterior and inferior leads. High-sensitivity troponin of 18,500. STEMI alert was activated and was taken straight to the [facility] at [facility] for intervention. He denies any chest pain at this time. No shortness of breath. Stable on room air. States he is feeling better. No nausea or upset stomach. Denies any confusion. Alert and oriented x 4. Very clear during discussion that his granddaughter is his POA and surrogate if he is unable to make decisions for himself. Patient was loaded with 324 mg of aspirin and 90 mg of Brilinta in the ER at [facility]. Hospital Course Hospital Course Hospital Course: 68-year-old male with previous history of MIs, CAD, depression, HIV, diabetes, hyperlipidemia. Presented to outside hospital with STEMI. Was transferred to [facility] for intervention. Taken to the [facility] with placement of 5 stents. Achieved improved flow. Necessitating admission and monitoring for the next 48 hours. Discussed case with cardiology, request admission for monitoring on telemetry and given high risk of cardiac arrhythmias. Medicine agreed to admit for further management. Occasional PVCs overnight, no acute events otherwise. STEMI , CAD s/p CAth , tolerated well, DC on ASA and brilinta, statin, metopro lol, enteresto hyperlipidemia Acute HFrEF - resolved -Presented with STEMI, ST elevations and inferior and anterior leads. Found to have lesions in the LAD. 5 stents placed. See cath report for full details. - Continue aspirin 81 mg daily and Brilinta 90 mg twice daily stable for DC per cardiology, f/u with cardiology as OP for discharge total time spent 38 mins. Exam Data for Last 24 hours Vital signs and Labs for Last 24 Hours: Temp Pulse Resp BP Pulse Ox O2 Del Method 97.9 F 62 16 95/50 L 91 L Room Air 09/24/23 08:00 09/24/23 08:00 09/24/23 08:00 09/24/23 08:00 09/24/23 08:00 09/24/23 11:00 Laboratory Results - last 24 hr 09/23/23 12:09: POC Glucose 198 H 09/23/23 16:07: POC Glucose 182 H 09/23/23 20:16: POC Glucose 147 H 09/24/23 05:50: POC Glucose 169 H 09/24/23 05:55: WBC 9.5, RBC 4.63, Hgb 14.2, Hct 43.2, MCV 93.2, MCH 30.7, MCHC 33.0, RDW 15.0, Plt Count 156, MPV 9.1, Neut % (Auto) 62.8, Lymph % (Auto) 27.6, Williamson % (Auto) 7.7, Eos % (Auto) 1.4, Baso % (Auto) 0.5, Neut # (Auto) 6.0, Lymph # (Auto) 2.6, Williamson # (Auto) 0.7, Eos # (Auto) 0.1, Baso # (Auto) 0.1, Sodium 135 L, Potassium 3.5, Chloride 101, Carbon Dioxide 25, Anion Gap 12.5, BUN 24 H D, Creatinine 1.10, Estimated Creat Clear 69, Estimated GFR 67, Est GFR ( Amer) 81, Glucose 158 H, Calcium 9.4, Magnesium 2.2, Total Bilirubin 1.1, AST 87 H D, ALT 48 D, Alkaline Phosphatase 76, Total Protein 7.0, Albumin 4.1, Globulin 2.9, Albumin/Globulin Ratio 1.4 09/24/23 10:50: NT-Pro-B Natriuret Pep 1210 H 09/24/23 11:08: POC Glucose 147 H I & O for Last 24 hours: Intake & Output 09/21/23 09/22/23 09/23/23 09/24/23 23:59 23:59 23:59 23:59 Intake Total 240 / 240 1440 / 1440 480 / 480 Output Total 1450 / 1950 500 / 500 0 / 0 Balance -1210 / -1710 940 / 940 480 / 480 Weight 78.103 kg 75.841 kg 75.478 kg Constitutional Constitutional: no acute distress *Routine HEENT Exam Head: Present normocephalic Eye: Present EOMI and PERRL ENT: Present mucous membranes moist *Routine Neck Exam Neck: Present supple; Absent lymphadenopathy *Routine Respiratory Exam Respiratory: Present CTA bilaterally *Routine Cardiovascular Exam Cardiovascular: Present RRR *Routine Abdominal Exam Abdominal: Present soft and normoactive bowel sounds; Absent tenderness *Routine Extremities Exam Extremities: Absent cyanosis, clubbing or edema *Routine Skin Exam Skin: Present warm; Absent rash *Routine Neurological Exam Neurological: Present alert and oriented X3 Results Data Completed and Pending Labs on day of discharge: Labs from last 24 hours 09/24/23 09/24/23 09/24/23 11:08 10:50 05:55 WBC 9.5 RBC 4.63 Hgb 14.2 Hct 43.2 MCV 93.2 MCH 30.7 MCHC 33.0 RDW 15.0 Plt Count 156 MPV 9.1 Neut % (Auto) 62.8 Lymph % (Auto) 27.6 Williamson % (Auto) 7.7 Eos % (Auto) 1.4 Baso % (Auto) 0.5 Neut # (Auto) 6.0 Lymph # (Auto) 2.6 Williamson # (Auto) 0.7 Eos # (Auto) 0.1 Baso # (Auto) 0.1 Sodium 135 L Potassium 3.5 Chloride 101 Carbon Dioxide 25 Anion Gap 12.5 BUN 24 H D Creatinine 1.10 Estimated Creat Clear 69 Estimated GFR 67 Est GFR ( Amer) 81 Glucose 158 H POC Glucose 147 H Calcium 9.4 Magnesium 2.2 Total Bilirubin 1.1 AST 87 H D ALT 48 D Alkaline Phosphatase 76 NT-Pro-B Natriuret Pep 1210 H Total Protein 7.0 Albumin 4.1 Globulin 2.9 Albumin/Globulin Ratio 1.4 09/24/23 09/23/23 09/23/23 05:50 20:16 16:07 WBC RBC Hgb Hct MCV MCH MCHC RDW Plt Count MPV Neut % (Auto) Lymph % (Auto) Williamson % (Auto) Eos % (Auto) Baso % (Auto) Neut # (Auto) Lymph # (Auto) Williamson # (Auto) Eos # (Auto) Baso # (Auto) Sodium Potassium Chloride Carbon Dioxide Anion Gap BUN Creatinine Estimated Creat Clear Estimated GFR Est GFR ( Amer) Glucose POC Glucose 169 H 147 H 182 H Calcium Magnesium Total Bilirubin AST ALT Alkaline Phosphatase NT-Pro-B Natriuret Pep Total Protein Albumin Globulin Albumin/Globulin Ratio 09/23/23 12:09 WBC RBC Hgb Hct MCV MCH MCHC RDW Plt Count MPV Neut % (Auto) Lymph % (Auto) Williamson % (Auto) Eos % (Auto) Baso % (Auto) Neut # (Auto) Lymph # (Auto) Williamson # (Auto) Eos # (Auto) Baso # (Auto) Sodium Potassium Chloride Carbon Dioxide Anion Gap BUN Creatinine Estimated Creat Clear Estimated GFR Est GFR ( Amer) Glucose POC Glucose 198 H Calcium Magnesium Total Bilirubin AST ALT Alkaline Phosphatase NT-Pro-B Natriuret Pep Total Protein Albumin Globulin Albumin/Globulin Ratio DS: Diagnosis Discharge Diagnosis (1) STEMI (ST elevation myocardial infarction): Status: Acute Code(s): I21.3 - ST elevation (STEMI) myocardial infarction of unspecified site (2) HFrEF (heart failure with reduced ejection fraction): Status: Acute Code(s): I50.20 - Unspecified systolic (congestive) heart failure (3) CAD (coronary artery disease): Status: Acute Code(s): I25.10 - Atherosclerotic heart disease of sun'aq coronary artery without angina pectoris (4) Depression: Status: Chronic Code(s): F32.A - Depression, unspecified (5) HIV (human immunodeficiency virus infection): Status: Chronic Code(s): B20 - Human immunodeficiency virus [HIV] disease (6) HLD (hyperlipidemia): Status: Acute Code(s): E78.5 - Hyperlipidemia, unspecified (7) Diabetes mellitus: Status: Chronic Code(s): E11.9 - Type 2 diabetes mellitus without complications (8) Tobacco use disorder: Status: Acute Code(s): F17.200 - Nicotine dependence, unspecified, uncomplicated Meds Home Medications and Allergies Home Medications Medication Instructions Recorded Confirmed Type atorvastatin 80 mg tablet 80 mg PO DAILY 09/22/23 09/23/23 History bupropion HCl 150 mg tablet,12 hr 150 mg PO DAILY 09/22/23 09/23/23 History sustained-release dolutegravir 50 mg-lamivudine 300 1 tab PO DAILY 09/22/23 09/23/23 History mg tablet (Dovato) donepezil 5 mg tablet 5 mg PO DAILY 09/22/23 09/23/23 History ezetimibe 10 mg tablet 10 mg PO DAILY 09/22/23 09/23/23 History famotidine 20 mg tablet 20 mg PO BID 09/22/23 09/23/23 History fenofibrate 54 mg tablet 54 mg PO DAILY 09/22/23 09/23/23 History hydrochlorothiazide 25 mg tablet 25 mg PO DAILY 09/22/23 09/23/23 History metformin 500 mg tablet,extended 500 mg PO BID 09/22/23 09/23/23 History release 24 hr methocarbamol 500 mg tablet 500 mg PO BID 09/22/23 09/23/23 History mirtazapine 7.5 mg tablet 7.5 mg PO DAILY 09/22/23 09/23/23 History oxybutynin chloride 5 mg 5 mg PO DAILY 09/22/23 09/23/23 History tablet,extended release 24 hr quetiapine 100 mg tablet 100 mg PO DAILY 09/22/23 09/23/23 History quetiapine 50 mg tablet 50 mg PO DAILY 09/22/23 09/22/23 History tamsulosin 0.4 mg capsule 0.4 mg PO DAILY 09/22/23 09/23/23 History budesonide-formoterol HFA 160 2 puff inhalation BID 09/23/23 09/23/23 History mcg-4.5 mcg/actuation aerosol inhaler aspirin 81 mg tablet,delayed 81 mg PO DAILY 30 days #30 tabs 09/24/23 Rx release empagliflozin 10 mg tablet 10 mg PO DAILY 30 days #30 tabs 09/24/23 Rx (Jardiance) metoprolol succinate 25 mg 25 mg PO DAILY 30 days #30 tabs 09/24/23 Rx tablet,extended release 24 hr pantoprazole 40 mg tablet,delayed 40 mg PO HS 30 days #30 tabs 09/24/23 Rx release sacubitril 24 mg-valsartan 26 mg 1 tab PO BID 30 days #60 tabs 09/24/23 Rx tablet (Entresto) ticagrelor 90 mg tablet (Brilinta) 90 mg PO BID 30 days #60 tabs 09/24/23 Rx New Prescriptions to Start [facility]: [facility] [Jardiance] Anthony,[facility] metoprolol succinate Anthony,[facility] pantoprazole Anthony,[facility] sacubitril-valsartan [Entresto] Anthony,[facility] ticagrelor [Brilinta] Anthony,[facility] Allergies Allergy/AdvReac Type Severity Reaction Status Date / Time amantadine Allergy Mild Verified 09/22/23 14:02 abciximab [From Reopro] Allergy Verified 09/22/23 16:26 cefaclor [From Ceclor] Allergy Verified 09/22/23 16:26 ofloxacin [From Floxin] Allergy Verified 09/22/23 16:26 Penicillins Allergy Verified 09/22/23 16:26 vancomycin Allergy Verified 09/22/23 16:26 Discharge Plan Disposition Patient Disposition: Home, Self-Care Condition: Good Discharge Order Discharge Orders: Discharge Order (Routine); Ordered 09/24/23 Ordered By: Isael Cruz Follow up Plan Follow up with: Vinh Gutierrez MD [Staff Physician] - 10/01/23 8:30 am Prescriptions/Medication Reconciliation: New Brilinta 90 mg Tablet 90 mg PO BID 30 Days Qty: 60 0RF Entresto 24-26 mg Tablet 1 tab PO BID 30 Days Qty: 60 0RF pantoprazole 40 mg Tablet,Delayed Release (Dr/Ec) 40 mg PO HS 30 Days Qty: 30 0RF metoprolol succinate 25 mg Tablet Extended Release 24 Hr 25 mg PO DAILY 30 Days Qty: 30 0RF Jardiance 10 mg Tablet 10 mg PO DAILY 30 Days Qty: 30 0RF aspirin 81 mg Tablet,Delayed Release (Dr/Ec) 81 mg PO DAILY 30 Days Qty: 30 0RF Continued methocarbamol 500 mg tablet 500 mg PO BID bupropion HCl 150 mg tablet sustained-release 12 hr 150 mg PO DAILY atorvastatin 80 mg tablet 80 mg PO DAILY donepezil 5 mg tablet 5 mg PO DAILY quetiapine 100 mg tablet 100 mg PO DAILY famotidine 20 mg tablet 20 mg PO BID tamsulosin 0.4 mg capsule 0.4 mg PO DAILY oxybutynin chloride 5 mg tablet extended release 24hr 5 mg PO DAILY hydrochlorothiazide 25 mg tablet 25 mg PO DAILY metformin 500 mg tablet extended release 24 hr 500 mg PO BID ezetimibe 10 mg tablet 10 mg PO DAILY mirtazapine 7.5 mg tablet 7.5 mg PO DAILY quetiapine 50 mg tablet 50 mg PO DAILY fenofibrate 54 mg tablet 54 mg PO DAILY Dovato 50-300 mg tablet 1 tab PO DAILY budesonide-formoterol 160-4.5 mcg/actuation HFA aerosol inhaler 2 puff INHALATION BID Problem Reconciliation Problems Reviewed?: Yes Patient Discharge Instructions ACTIVITY: Ambulate as tolerated DIET: continue same diet Patient Instructions: Cardiac Catheterization, DI for Surgical Site Infection, Surgical Site Infection, Cardiology Catheterization Patient / Family Discharge Instructions Providers Primary Care Provider: Provider,Referral Admit Provider: Crow Martinez Attending Provider: Crow Martinez
[2023-09-24 11:45] VITALS: BP 105/70; PULSE 93; RESP 16; TEMP 36.6; O2SAT 92
[2023-09-24 12:00] VITALS: PULSE 90
--- NOTE | 2023-09-24 12:42 | PC.NURSE ---
Tried to make a 7-10 day follow up with the patients PCP, the office told me the patient has a follow up scheduled for December. I tried to make one sooner, I was transferred to the nurses desk to make a follow up appt in the - window but there was no answer. Tried 2 times.
--- NOTE | 2023-09-24 12:59 | P.PN_ITS ---
Subjective Subjective Date: 09/24/23 Time: 10:00 Interval history: No issues overnight. Denies CP, SOA, palpitations, and cath site discomfort. Awaiting LifeVest approval. Stable vitals and labs. Exam Data for Last 24 hours Vital signs and Labs for Last 24 Hours: Temp Pulse Resp BP Pulse Ox O2 Del Method 97.9 F 93 H 16 105/70 L 92 L Room Air 09/24/23 11:45 09/24/23 11:45 09/24/23 11:45 09/24/23 11:45 09/24/23 11:45 09/24/23 11:00 Laboratory Results - last 24 hr 09/23/23 16:07: POC Glucose 182 H 09/23/23 20:16: POC Glucose 147 H 09/24/23 05:50: POC Glucose 169 H 09/24/23 05:55: WBC 9.5, RBC 4.63, Hgb 14.2, Hct 43.2, MCV 93.2, MCH 30.7, MCHC 33.0, RDW 15.0, Plt Count 156, MPV 9.1, Neut % (Auto) 62.8, Lymph % (Auto) 27.6, [place] % (Auto) 7.7, Eos % (Auto) 1.4, Baso % (Auto) 0.5, Neut # (Auto) 6.0, Lymph # (Auto) 2.6, [place] # (Auto) 0.7, Eos # (Auto) 0.1, Baso # (Auto) 0.1, Sodium 135 L, Potassium 3.5, Chloride 101, Carbon Dioxide 25, Anion Gap 12.5, BUN 24 H D, Creatinine 1.10, Estimated Creat Clear 69, Estimated GFR 67, Est GFR ( Amer) 81, Glucose 158 H, Calcium 9.4, Magnesium 2.2, Total Bilirubin 1.1, AST 87 H D, ALT 48 D, Alkaline Phosphatase 76, Total Protein 7.0, Albumin 4.1, Globulin 2.9, Albumin/Globulin Ratio 1.4 09/24/23 10:50: NT-Pro-B Natriuret Pep 1210 H 09/24/23 11:08: POC Glucose 147 H Temp Pulse Resp BP Pulse Ox O2 Del Method 97.9 F 96 H 16 98/60 L 92 L Room Air 09/23/23 12:00 09/23/23 12:00 09/23/23 12:00 09/23/23 12:00 09/23/23 12:00 09/23/23 13:00 Laboratory Results - last 24 hr 09/22/23 14:30: Activated Clotting Time 254 H* 09/22/23 16:50: WBC 10.6, RBC 4.63, Hgb 13.8 L, Hct 42.3, MCV 91.3, MCH 29.9, MCHC 32.7, RDW 15.1, Plt Count 145, MPV 8.5, Neut % (Auto) 69.5, Lymph % (Auto) 22.7, [place] % (Auto) 5.3, Eos % (Auto) 0.7, Baso % (Auto) 1.7, Neut # (Auto) 7.4, Lymph # (Auto) 2.4, [place] # (Auto) 0.6, Eos # (Auto) 0.1, Baso # (Auto) 0.2, Sodium 135 L, Potassium 3.6, Chloride 103, Carbon Dioxide 23, Anion Gap 12.6, BUN 14, Creatinine 0.80, Estimated Creat Clear 78, Estimated GFR 96, Est GFR ( Amer) 116, Glucose 195 H, Hemoglobin A1c 5.5, Calcium 9.2, TSH 1.34 09/22/23 17:06: POC Glucose 184 H 09/22/23 20:24: POC Glucose 130 H 09/23/23 05:28: POC Glucose 181 H 09/23/23 05:29: WBC 9.0, RBC 4.72, Hgb 14.4, Hct 43.4, MCV 91.9, MCH 30.5, MCHC 33.2, RDW 15.3, Plt Count 166, MPV 8.8, Neut % (Auto) 65.5, Lymph % (Auto) 24.1, [place] % (Auto) 9.1, Eos % (Auto) 0.7, Baso % (Auto) 0.6, Neut # (Auto) 5.9, Lymph # (Auto) 2.2, [place] # (Auto) 0.8, Eos # (Auto) 0.1, Baso # (Auto) 0.1, Sodium 135 L, Potassium 3.5, Chloride 100, Carbon Dioxide 25, Anion Gap 13.5, BUN 18 D, Creatinine 1.00 D, Estimated Creat Clear 76, Estimated GFR 74, Est GFR ( Amer) 90 D, Glucose 171 H, Calcium 9.3, Magnesium 2.1, Total Bilirubin 1.2, AST 230 H, ALT 66, Alkaline Phosphatase 78, Total Protein 7.2, Albumin 4.3, Globulin 2.9, Albumin/Globulin Ratio 1.5, Triglycerides 139, Cholesterol 111 L, LDL Cholesterol Direct 67.31 L, VLDL Cholesterol 28, HDL Cholesterol 27 L, Cholesterol/HDL Ratio 4.1 H 09/23/23 12:09: POC Glucose 198 H I & O for Last 24 hours: Intake & Output 09/21/23 09/22/23 09/23/23 09/24/23 23:59 23:59 23:59 23:59 Intake Total 240 / 240 1440 / 1440 480 / 480 Output Total 1450 / 1950 500 / 500 0 / 0 Balance -1210 / -1710 940 / 940 480 / 480 Weight 172 lb 3 oz 167 lb 3.2 oz 166 lb 6.4 oz Intake & Output 09/20/23 09/21/23 09/22/23 09/23/23 23:59 23:59 23:59 23:59 Intake Total 240 / 240 960 / 960 Output Total 1450 / 1950 500 / 500 Balance -1210 / -1710 460 / 460 Weight 172 lb 3 oz 167 lb 3.2 oz Constitutional Constitutional: no acute distress and cooperative *Routine HEENT Exam Eye: Present PERRL *Routine Respiratory Exam Respiratory: Present CTA bilaterally; Absent accessory muscle use, wheezes or crackles *Routine Cardiovascular Exam Cardiovascular: Present RRR, Normal S1 and Normal S2; Absent murmur, gallop or rubs Comments: right radial cath site normal on inspection and palpation *Routine Abdominal Exam Abdominal: Present soft; Absent tenderness *Routine Extremities Exam Extremities: Present pulses intact; Absent cyanosis or edema *Routine Skin Exam Skin: Present intact; Absent erythema or wounds *Routine Neurological Exam Neurological: Present alert and oriented X3 Routine Psychiatric Exam Psychiatric: Present cooperative Progress Note: A&P Assessment and plan (1) STEMI (ST elevation myocardial infarction): Status: Acute (2) HFrEF (heart failure with reduced ejection fraction): Status: Acute (3) CAD (coronary artery disease): Status: Acute (4) Depression: Status: Chronic (5) HIV (human immunodeficiency virus infection): Status: Chronic (6) HLD (hyperlipidemia): Status: Acute (7) Diabetes mellitus: Status: Chronic (8) Tobacco use disorder: Status: Acute Assessment and Plan Assessment and Plan for All Diagnoses:: MV-CAD s/p STEMI and PCI 09/21 - prior DMITRI approx 2003 and 2007 - [facility] here 09/21: LAD 50% and acute occlusion (stented) Ramus 80-90% (stented) RCA ([employer]) Severe LV dysfunction - CCS = 0 following stenting - Cont DAPT, Statin. Hold on BB due to LV dysfunction and hypotension - pt will need cardiac rehab at discharge HFrEF - Ischemic Cardiomyopathy - EF 30% following STEMI. No prior imaging for comparison - NYHA = 1-2 - Cont Entresto. Add Farxiga. No Aldactone due to low BP - 90s. Will add later. - pt appears euvolemice - agreeable to LifeVest DM - well controlled with A1C <7 - add Farxiga for CV benefit HLD - not at goal with LDL of 65, goal is <55 - cont high dose statin and zetia, consider [facility]-9 outpatient Htn - low normal here on GDMT for HF HIV status - treated/stable per reporte - standar precautions 09/23 CV summary: Pt CV stable for discharge following LifeVest placement. He has been advised to avoid physical exertion and to avoid using any machinery which might vibrate his vest and lead to an accidental discharge.
[2023-09-24 16:00] VITALS: BP 111/56; PULSE 88; RESP 16; TEMP 36.6; O2SAT 93
[2023-09-24 16:23] LABS: POC Glucose,Bedside 173 (70-110)
--- NOTE | 2023-09-25 13:45 | CARE MANAGER ---
Contacted patient related to hospital discharge and left message. Patient called back. He states he is doing well. 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 He is aware of follow up appointments and denies questions or concerns. DL Francis
== END 2023-09-24 18:27 | disposition home or self-care (01) | DRG 321 ==
PROVIDERS: Internal Medicine; Physician Assistant; Admitting Provider Internal Medicine Adolescent Medicine; Visit Provider Internal Medicine Adolescent Medicine
PROC: 027137Z Dilation of Coronary Artery, Two Arteries with Four or More Drug-eluting Intraluminal Devices, Percutaneous Approach (ICD-10-PCS; principal; 2023-09-22 14:00)
DX: I21.3 ST elevation (STEMI) myocardial infarction of unspecified site (principal); I50.21 Acute systolic (congestive) heart failure; B20 Human immunodeficiency virus [HIV] disease; I11.0 Hypertensive heart disease with heart failure; Z95.5 Presence of coronary angioplasty implant and graft; E78.5 Hyperlipidemia, unspecified; I25.2 Old myocardial infarction; E11.9 Type 2 diabetes mellitus without complications; Z86.73 Personal history of transient ischemic attack (TIA), and cerebral infarction without residual deficits; I25.10 Atherosclerotic heart disease of native coronary artery without angina pectoris; Z96.642 Presence of left artificial hip joint; Z79.84 Long term (current) use of oral hypoglycemic drugs; F32.A Depression, unspecified; G47.9 Sleep disorder, unspecified; F17.210 Nicotine dependence, cigarettes, uncomplicated
CPT/HCPCS: 36415; 71045; 80048; 80053; 80061; 82962; 83036; 83735; 83880; 84443; 85025; 85347; 92928; 92941; 93306; 93458; 99152; 99153; C1725; C1769; C1874; C1876; C9600; C9606; J1644; Q9967

== ENCOUNTER 2023-12-11 10:38 | Outpatient (CLI) | payer MEDICARE, MEDICAID, SELFPAY ==
--- NOTE | 2023-12-11 11:27 | CT_ITS ---
FINAL REPORT TECHNIQUE: The patient was injected with IV contrast. Axial images were obtained through the chest in a PE protocol. 3-D reconstruction images were also performed. Individualized dose reduction techniques using automated exposure control or adjustment of the MA and/or KV according to patient's size were employed. CLINICAL HISTORY: Pt reports hx AAA COMPARISON: None FINDINGS: Mediastinal vasculature is adequately opacified. No pulmonary artery filling defects are identified to suggest PE. There is no aortic dissection. There is no evidence of aneurysm. There is no axillary adenopathy. There is no hilar or mediastinal adenopathy. There are dense coronary artery calcifications. The heart size is normal. There is no pericardial or pleural effusion. No suspicious infiltrate or nodule is identified. Limited images of the upper abdomen demonstrate a benign-appearing cyst arising from the superior pole of the right kidney measuring 2.1 cm. IMPRESSION: No evidence of aneurysm. Reviewed, Interpreted and Dictated by Dima Freitas MD Transcribed by Sabina Mccray Authenticated and [facility]
[2023-12-11 11:42] LABS: Blood Urea Nitrogen 23 mg/dl (9-20); Estimated Glomerular Filt Rate 74 ml/min (>60); GFR (African American) 90 ML/MIN (>60)
[2023-12-11] MEDS: 0.9 % SODIUM CHLORIDE 50 ML VIAL IV (12:20)
[2023-12-11] MEDS: IOPAMIDOL-370 (76%);100ML BOTTLE 70 ML IV (12:21)
[2023-12-11] MEDS: SODIUM CHLORIDE 0.9% 10ML SYR (RAD ONLY) 10 ML IV (12:21)
== END 2023-12-11 23:59 | disposition home or self-care (01) ==
LOC: RT 10:38
PROVIDERS: Internal Medicine; Visit Provider Nurse Practitioner Family
DX: I25.10 Atherosclerotic heart disease of native coronary artery without angina pectoris (principal); I71.40 Abdominal aortic aneurysm, without rupture, unspecified; Z87.891 Personal history of nicotine dependence
CPT/HCPCS: 36415; 71275; 82565; 84520; 93306; Q9967

== ENCOUNTER 2023-12-23 08:38 | Outpatient (CLI) | payer MEDICARE, MEDICAID, SELFPAY ==
--- NOTE | 2023-12-23 08:40 | CA_ITS ---
APPROVED REPORT EXAM: Limited 2D Echocardiogram Multi Spindle Operator: Cindy Sarkar RVT Ht: 5 ft 6 in Wt: 182lbs BSA: 1.92 BP: 129/73 mmHg Indications: EF CHECK,CM EF OF 30% ON 09/23/23,DM,HTN,HLD,LIFEVEST IN PLACE 2D Dimensions IVSd 1.48 cm M: 0.6-1.2 LVEF (Visual) 32.80 % PWd 0.80 cm M: 0.6 - 1.2 EF AP4 37.20 % LVDd 6.24 cm M: 4.2 - 5.9 GL Strain -8.6 % LVDs 5.25 cm M: 2.5 - 4.0 M-Mode Dimensions LA Diam 4.22 cm (1.9-4.0) Other Information Study Quality: Fair Conclusion This is a limited TTE to evaluate for LVEF. Limited windows were obtained. The left ventricle is normal in size. There is increased LV wall thickness. The septum is asynchronous. LVEF is 30-35%. Compared to the prior study from 09/23/2023, the LVEF overall appears unchanged. In the setting of borderline LVEF approaching 35%, more accurate evaluation of LVEF is recommended with cardiac MRI (cardiomyopathy protocol) prior to ICD implantation. Electronically signed by : Angeline Hollingsworth MD 12/23/2023 14:19:31
== END 2023-12-23 23:59 | disposition home or self-care (01) ==
PROVIDERS: PCP Internal Medicine; Visit Provider Nurse Practitioner Family
DX: I25.5 Ischemic cardiomyopathy (principal); I51.9 Heart disease, unspecified; I50.20 Unspecified systolic (congestive) heart failure; Z72.0 Tobacco use
CPT/HCPCS: 93308

== ENCOUNTER 2024-01-23 09:44 | Outpatient (CLI) | payer MEDICARE, MEDICAID, SELFPAY ==
--- NOTE | 2024-01-23 09:45 | MR_ITS ---
APPROVED REPORT Commission Agent Livestock: CLINICAL INDICATION HFrEF evaluation (LVEF 30% on TTE) TECHNIQUE Image Acquisition: Cardiac magnetic resonance (CMR) was performed on Siemens Espree MRI 1.5T scanner. Software platform sequences were performed using the Siemens Hashgo MR B19 platform. A set of three-plane, low-resolution, large [id number] localizers were initially acquired. Then axial, coronal, sagittal TrueFISP, as well as axial HASTE images, were obtained. These were followed by gated TrueFISP breathold cinematic sequences obtained in the short axis with 8 mm slices and 2 mm gaps, 2-chamber (vertical long axis), 3-chamber, 4-chamber (horizontal long axis). A bolus of contrast was injected intravenously with first-pass sequences obtained in the short axis and four-chamber planes. After approximately 10 minutes, a TI honing job setter sequence was performed to determine the optimal TI time. Using the optimized TI time, delayed contrast enhancement segmented inversion???recovery TurboFLASH sequences were obtained in the short axis, 2-chamber, 3-chamber, and 4-chamber projections. 2D-velocity phase mapping was performed. Functional parameters were calculated by offline analysis on an independent workstation ([employer], [employer]). Contrast: ProHance??? (Gadoteridol) FINDINGS MORPHOLOGY AND FUNCTION Left ventricle: The left ventricle is mildly dilated. The indexed left ventricular end-diastolic volume (LVEDVi) is 112 ml/m2 (reference range 57-105 ml/m2 in males, 56-96 ml/m2 in females). There is severe reduction in global left ventricular systolic function. There is normal left ventricular wall thickness. There is myocardial thinning towards the LV apical region. There is severe global hypokinesis present. The distal and apical LV hernandez are akinetic. LVEF is calculated at 25.8% (reference range 57-77%). Right ventricle: The right ventricle is normal in size. The indexed right ventricular end-diastolic volume (RVEDVi) is 75 ml/m2 (reference range 61-121 ml/m2 in males, 48-112 ml/m2 in females). There is mild reduction in right ventricular systolic function. RVEF is calculated at 48.0% (reference range 52-72% in males, 51-71% in females). Atria: The left atrium is normal in size. The maximum indexed left atrial volume is 39 ml/m2 (reference range 26-52 ml/m2 in males, 27-53 ml/m2 in females). The right atrium is normal in size. The maximum indexed right atrial volume is 19 ml/m2 (reference range 18-90 ml/m2). Aorta: The diameter of the aortic annulus is normal, measuring 30 mm (coronal view reference range 21-30 mm in males, 19-27 mm in females). The diameter of the aortic sinus is normal, measuring 35 mm (coronal view reference range 25-42 mm in males, 24-36 mm in females). The diameter of the sinotubular junction is normal, measuring 28 mm (coronal view reference range 18-32 mm in males, 18-28 mm in females). The diameters of the ascending and descending thoracic aorta are normal. Main pulmonary artery: The main pulmonary artery diameter is normal. Pericardium: The pericardial thickness is normal. The pericardial thickness measures 2 mm (normal < 4.0 mm). There is no pericardial effusion. VALVES The valvular morphologies in the visualized sequences appear normal. There is no significant valvular stenosis or regurgitation of the mitral, aortic, tricuspid, or pulmonic valve noted visually. Systolic anterior motion of the mitral valve is not visualized. Ratio of pulmonary to systemic flow, Qp:Qs ratio = 1.55 (normal < or = 1.2, hemodynamically significant shunt > 1.5), demonstrating possible evidence of hemodynamically significant shunt in the appropriate clinical setting. TISSUE CHARACTERIZATION Resting Perfusion: Normal myocardial blood flow at rest. No evidence of resting hypoperfusion. Myocardial Fibrosis and/or edema: Abnormal gadolinium kinetics are present. There is presence of transmural late gadolinium enhancement (LGE) present in the distal anterior and anteroseptal LV hernandez, as well as the LV apex. The LGE burden occupies > 90% of the total myocardial thickness, indicative of nonviable myocardium in the corresponding region. OTHER No other significant findings are noted. However, this exam is focused on the cardiac structure and function. IMPRESSION Mildly dilated LV with severe reduction in LV systolic function. LVEDVi= 112 ml/m2 and LVEF= 25.8%. Myocardial thinning towards the LV apical region. There is severe global hypokinesis present. The distal and apical LV hernandez are akinetic. Transmural late gadolinium enhancement (LGE) present in the distal anterior and anteroseptal LV hernandez, as well as the LV apex. The LGE burden occupies > 90% of the total myocardial thickness, indicative of nonviable myocardium in the corresponding region. Normal RV size with normal RV systolic function. RVEDVi= 75 ml/m2 and RVEF= 48.0%. No atrial enlargement. No CMR evidence of myocardial scarring, infarction, or necrosis. No evidence of myocardial edema or inflammation. Perfusion analysis demonstrates normal blood flow at rest with no evidence of resting hypoperfusion. Ratio of pulmonary to systemic flow, Qp:Qs ratio = 1.55 (normal < or = 1.2, hemodynamically significant shunt > 1.5), demonstrating possible evidence of hemodynamically significant shunt in the appropriate clinical setting. The above findings are consistent with ischemic cardiomyopathy with severe reduction in LV systolic function (LVEF 25.8%). Transmural LGE suggestive of presence of scarring and therefore absence of viable myocardium in the corresponding region. GDMT is recommended. If LVEF remains severely reduced, consideration of ICD for primary prevention is also suggested. COMPARISON None CRITICAL RESULT None COMMUNICATION These findings were communicated with the patient at the time of the routine outpatient visit. The findings of this cardiac MR were reviewed, reported, and signed by Baldomero Hollingsworth MD (Corporate Associate Attorney). Conclusion Electronically signed by : Angeline Hollingsworth MD 02/03/2024 00:34:13
[2024-01-23] MEDS: 0.9 % SODIUM CHLORIDE 50 ML VIAL 25 ML IV (11:52)
[2024-01-23] MEDS: GADOTERIDOL INJ 20ML SYRINGE 19 ML IV (11:53)
[2024-01-23] MEDS: SODIUM CHLORIDE 0.9% 10ML SYR (RAD ONLY) 10 ML IV (11:53)
== END 2024-01-23 23:59 | disposition home or self-care (01) ==
LOC: RAD 09:45
PROVIDERS: PCP Internal Medicine; Visit Provider Nurse Practitioner Family
DX: I25.5 Ischemic cardiomyopathy (principal); I51.9 Heart disease, unspecified; R94.31 Abnormal electrocardiogram [ECG] [EKG]; I50.20 Unspecified systolic (congestive) heart failure; F17.200 Nicotine dependence, unspecified, uncomplicated; E13.69 Other specified diabetes mellitus with other specified complication; E78.5 Hyperlipidemia, unspecified; B20 Human immunodeficiency virus [HIV] disease; I25.10 Atherosclerotic heart disease of native coronary artery without angina pectoris; I21.3 ST elevation (STEMI) myocardial infarction of unspecified site
CPT/HCPCS: 75561; A9576

== ENCOUNTER 2024-04-03 08:43 | Day surgery (SDC) | payer MEDICARE, MEDICAID, SELFPAY ==
[2024-04-03 08:49] VITALS: BMI 29.0
[2024-04-03 09:02] VITALS: BP 133/84; PULSE 78; PULSE 79; RESP 18; TEMP 36.8; O2SAT 96
[2024-04-03 09:19] LABS: Basophils # 0.1 K/mm3 (0-0.2); Basophils % 1.1 % (0.1-2.0); Eosinophils # 0.1 K/mm3 (0.0-0.4); Eosinophils % 2.4 % (0.1-12.0); Lymphocytes # 1.8 K/mm3 (0.7-4.5); Lymphocytes % 33.4 % (10-50); Mean Corpuscular HGB Conc 34.1 g/dL (31.8-35.4); Mean Corpuscular Hemoglobin 28.4 pg (27.0-31.2); Mean Corpuscular Volume 83.1 fl (80-94); Mean Platelet Volume 7.8 fl (7.4-10.4); Monocytes # 0.5 K/mm3 (0.1-1.0); Monocytes % 8.5 % (1.7-9.3); Neutrophils % 54.6 % (37.0-80.0); Platelet Count 148 K/mm3 (142-424); Red Blood Count 5.66 M/mm3 (4.60-6.20); Red Cell Distribution Width 14.9 % (11.5-17.5); White Blood Count 5.5 K/mm3 (4.8-10.8)
[2024-04-03 09:31] LABS: Chloride 105 mmol/L (98-107); Potassium 3.4 mmoL/L (3.5-5.1); Sodium 137 mmol/L (136-145)
[2024-04-03 09:34] LABS: Anion Gap 16.4 mEq/L (5-15); Blood Urea Nitrogen 25 mg/dl (9-20); Carbon Dioxide 19 mmol/L (22.0-30.0); Creatinine Clearance Estimated 74 mL/min (50-200); Estimated Glomerular Filt Rate 67 ml/min (>60); GFR (African American) 81 ML/MIN (>60)
[2024-04-03 09:35] LABS: Calcium 9.5 mg/dl (8.4-10.2); Glucose 152 mg/dl (74-100)
[2024-04-03] MEDS: CLINDAMYCIN PHOSPHATE/D5W 900 MG/50 ML PIGGYBACK 100 MG IV (10:18)
[2024-04-03] MEDS: CLINDAMYCIN PHOSPHATE 900 MG in 0.9 % SODIUM CHLORIDE 100 ML 100 MG TP (10:19)
[2024-04-03] MEDS: 0.9 % SODIUM CHLORIDE 1000ML 1,000 ML 25 ML IV (10:20)
[2024-04-03] MEDS: diphenhydrAMINE 50MG/ML VIAL 50 MG IV (10:20)
[2024-04-03] MEDS: LIDOCAINE 1% W/EPI 1:100,000 20ML VIAL 20 ML SQ (10:21)
--- NOTE | 2024-04-03 11:19 | XR_ITS ---
FINAL REPORT TECHNIQUE: Single view chest CLINICAL HISTORY: Confirm pacemaker/AID placement COMPARISON: 09/24/2023 FINDINGS: A single view of the chest was obtained. There is a left subclavian pacemaker in place. The heart and mediastinum are within normal limits. There is scarring or atelectasis at the lung bases. The lungs are otherwise clear. There is no pneumothorax. Osseous structures are unremarkable. Overlying skin sherri are noted. IMPRESSION: Interval maker placement without pneumothorax. Reviewed, Interpreted and Dictated by Dima Freitas MD Transcribed by Kinga Diana Authenticated and [facility][1]
[2024-04-03 11:25] VITALS: BP 157/75; PULSE 89; RESP 18; TEMP 36.9; O2SAT 95
[2024-04-03 12:00] VITALS: BP 136/86; PULSE 80; RESP 16; O2SAT 95
[2024-04-03 12:15] VITALS: BP 134/84; PULSE 84; RESP 20; O2SAT 95
[2024-04-03 12:25] VITALS: BP 135/82; PULSE 82; RESP 20; O2SAT 95
[2024-04-03 12:46] VITALS: BP 137/84; PULSE 84; RESP 20; O2SAT 95
== END 2024-04-03 13:04 | disposition home or self-care (01) ==
PROVIDERS: Visit Provider Internal Medicine
PROC: 0JH608Z Insertion of Defibrillator Generator into Chest Subcutaneous Tissue and Fascia, Open Approach (ICD-10-PCS; CPT 33249; principal; 2024-04-03 10:00)
DX: I25.5 Ischemic cardiomyopathy (principal); I50.21 Acute systolic (congestive) heart failure; I11.0 Hypertensive heart disease with heart failure; E11.9 Type 2 diabetes mellitus without complications; I25.10 Atherosclerotic heart disease of native coronary artery without angina pectoris; F17.210 Nicotine dependence, cigarettes, uncomplicated; B20 Human immunodeficiency virus [HIV] disease; Z79.4 Long term (current) use of insulin; Z79.899 Other long term (current) drug therapy
CPT/HCPCS: 33249; 71045; 80048; 85025; C1721; C1895; C1898; J0736; J1200; J7030

== ENCOUNTER 2024-05-14 11:05 | Day surgery (SDC) | payer MEDICARE, MEDICAID, SELFPAY ==
[2024-05-14 11:07] VITALS: BMI 29.8
--- NOTE | 2024-05-14 11:13 | SUR.PREOP ---
spoke with Bill in pharmacy regarding antibiotics for procedure.
[2024-05-14 11:26] LABS: Basophils % 0.5 % (0.1-2.0); Eosinophils # 0.1 K/mm3 (0.0-0.4); Eosinophils % 1.7 % (0.1-12.0); Hematocrit 47.8 % (42.0-52.0); Hemoglobin 15.5 g/dL (14.1-18.0); Lymphocytes # 2.3 K/mm3 (0.7-4.5); Lymphocytes % 29.7 % (10-50); Mean Corpuscular HGB Conc 32.4 g/dL (31.8-35.4); Mean Corpuscular Hemoglobin 26.8 pg (27.0-31.2); Mean Corpuscular Volume 82.6 fl (80-94); Mean Platelet Volume 10.1 fl (7.4-10.4); Monocytes # 0.6 K/mm3 (0.1-1.0); Monocytes % 8.2 % (1.7-9.3); Neutrophils # 4.6 K/mm3 (1.8-7.8); Neutrophils % 59.4 % (37.0-80.0); Platelet Count 178 K/mm3 (142-424); Red Blood Count 5.79 M/mm3 (4.60-6.20); Red Cell Distribution Width 13.9 % (11.5-17.5); White Blood Count 7.7 K/mm3 (4.8-10.8)
[2024-05-14 11:44] LABS: Anion Gap 12.1 mEq/L (5-15); Blood Urea Nitrogen 21 mg/dl (9-20); Carbon Dioxide 27 mmol/L (22.0-30.0); Chloride 103 mmol/L (98-107); Creatinine Clearance Estimated 83 mL/min (50-200); Estimated Glomerular Filt Rate 74 ml/min (>60); GFR (African American) 90 ML/MIN (>60); Glucose 169 mg/dl (74-100); Potassium 4.1 mmoL/L (3.5-5.1); Sodium 138 mmol/L (136-145)
--- NOTE | 2024-05-14 12:32 | IR_ITS ---
APPROVED REPORT Patient Location: Outpatient Parking Patroller: LUIS FERNANDO Ramos RT (R) PROCEDURES Right Atrial lead extraction Right Ventricular sensing pacing shocking coil extraction AICD generator extraction Pocket Flush and packing INDICATION Pacemaker pocket infection Informed consent was obtained prior to the procedure. COMPLICATIONS NONE Estimated Blood Loss: LESS THAN 10 ML TECHNIQUE 1% lidocaine with epinephrine used to anesthetize the left anterior aspect of the chest. Scalpel was used to make the initial cutaneous incision and then used to dissect down to the existing pacemaker generator. The generator was removed from the existing pocket. The leads were removed from the old generator. Both leads were unscrewed from the hernandez of the heart and removed from the body. Antibiotics were used to flush the pocket and pocket was packed with sterile gauze with dressing. Patient was transferred to the postop holding area in stable condition. IMPRESSION Successful Right Atrial lead extraction Successful Right Ventricular sensing pacing shocking coil extraction Successful AICD generator extraction Successful Pocket Flush and packing PLAN 1. Postop wound care. Electronically signed by : Vinh Gutierrez MD 05/19/2024 10:21:29
[2024-05-14 13:47] VITALS: BP 134/80; PULSE 78; RESP 18; O2SAT 100
[2024-05-14] MEDS: CLINDAMYCIN PHOSPHATE/D5W 900 MG/50 ML PIGGYBACK 100 MG IV (14:49)
[2024-05-14] MEDS: CLINDAMYCIN PHOSPHATE 900 MG in 0.9 % SODIUM CHLORIDE 100 ML 100 MG TP (14:50)
[2024-05-14] MEDS: LIDOCAINE 1% W/EPI 1:100,000 20ML VIAL 20 ML IJ (14:51)
--- NOTE | 2024-05-14 15:22 | SUR.PHASEII ---
spoke with Susan LIZAMAinternal grinding machine operator regarding pt needing outpatient dressing changes. Outpt order form filled out per MD.
[2024-05-14 15:28] VITALS: BP 102/69; PULSE 76; RESP 21; TEMP 36.1; O2SAT 95
[2024-05-14 15:42] VITALS: BP 98/77; PULSE 78; RESP 20; O2SAT 95
== END 2024-05-14 16:04 | disposition home or self-care (01) ==
PROVIDERS: PCP Internal Medicine; Visit Provider Internal Medicine
DX: T82.7XXA Infection and inflammatory reaction due to other cardiac and vascular devices, implants and grafts, initial encounter (principal); I25.5 Ischemic cardiomyopathy; L03.313 Cellulitis of chest wall; I50.20 Unspecified systolic (congestive) heart failure; I25.10 Atherosclerotic heart disease of native coronary artery without angina pectoris; B20 Human immunodeficiency virus [HIV] disease; E11.9 Type 2 diabetes mellitus without complications; F17.210 Nicotine dependence, cigarettes, uncomplicated; Z79.4 Long term (current) use of insulin; Y83.1 Surgical operation with implant of artificial internal device as the cause of abnormal reaction of the patient, or of later complication, without mention of misadventure at the time of the procedure; I11.0 Hypertensive heart disease with heart failure; I25.2 Old myocardial infarction; E78.5 Hyperlipidemia, unspecified; Z79.899 Other long term (current) drug therapy; B96.1 Klebsiella pneumoniae [K. pneumoniae] as the cause of diseases classified elsewhere
CPT/HCPCS: 33241; 33272; 80048; 85025; 87070; 87077; 87186; 87205; J0736

== ENCOUNTER 2024-05-14 20:44 | Emergency (ER) | payer MEDICARE, MEDICAID, SELFPAY ==
[2024-05-14 20:45] VITALS: BP 146/76; PULSE 46; RESP 16; TEMP 36.9; O2SAT 98; BMI 29.8
--- NOTE | 2024-05-14 21:49 | HMH.EDGENADL ---
Discharge Plan Disposition Patient Disposition: Eloped Chief Complaint: Recheck/Abnormal Lab/Rx Prescriptions Prescriptions: No Action mirabegron [Myrbetriq] 25 mg tablet extended release 24 hr 25 mg PO DAILY spironolactone [Aldactone] 25 mg tablet 25 mg PO DAILY Qty: 30 2RF oxybutynin chloride 5 mg tablet extended release 24hr 5 mg PO DAILY (DME) pen needle, diabetic [BD Ultra-Fine Mini Pen Needle] 31 gauge x 3/16 needle See Rx Instructions .ROUTE .MEDSUPPLY Qty: 1200 Rx Instructions: As directed insulin glargine [Lantus Solostar U-100 Insulin] 100 unit/mL (3 mL) insulin pen SQ (DME) FreeStyle Kasi 2 Sensor Kit See Rx Instructions .ROUTE .MEDSUPPLY Qty: 1 Rx Instructions: As directed nitroglycerin 0.4 mg tablet, sublingual 0.4 mg sublingual Q5-15M PRN metoprolol succinate 25 mg tablet extended release 24 hr 25 mg PO DAILY Qty: 90 3RF hydrochlorothiazide 25 mg tablet 25 mg PO DAILY Qty: 90 3RF Jardiance 10 mg tablet 10 mg PO DAILY Qty: 90 3RF atorvastatin 80 mg tablet 80 mg PO DAILY Qty: 90 3RF pantoprazole 40 mg tablet,delayed release (DR/EC) 40 mg PO HS Qty: 90 3RF (DME) OneTouch Verio test strips Strip See Rx Instructions .ROUTE .MEDSUPPLY Qty: 10 Rx Instructions: As directed (DME) Dexcom G7 Sensor Device See Rx Instructions .ROUTE .MEDSUPPLY Qty: 1 Rx Instructions: As directed (DME) Dexcom G7 Engraver [employer] Misc See Rx Instructions .ROUTE .MEDSUPPLY Qty: 1 Rx Instructions: As directed doxycycline monohydrate 100 mg capsule 100 mg PO BID 10 Days Qty: 20 0RF Entresto 49-51 mg tablet See Rx Instructions .ROUTE .COMPLEX Qty: 180 3RF Dose Instruction: TAKE 1 TABLET BY MOUTH TWO TIMES A DAY Rx Instructions: TAKE 1 TABLET BY MOUTH TWO TIMES A DAY Brilinta 90 mg tablet 90 mg PO BID Qty: 180 1RF methocarbamol 500 mg tablet 500 mg PO BID bupropion HCl 150 mg tablet sustained-release 12 hr 150 mg PO DAILY donepezil 5 mg tablet 5 mg PO DAILY quetiapine 100 mg tablet 100 mg PO DAILY famotidine 20 mg tablet 20 mg PO BID tamsulosin 0.4 mg capsule 0.4 mg PO DAILY metformin 500 mg tablet extended release 24 hr 500 mg PO BID ezetimibe 10 mg tablet 10 mg PO DAILY mirtazapine 7.5 mg tablet 7.5 mg PO DAILY quetiapine 50 mg tablet 50 mg PO DAILY fenofibrate 54 mg tablet 54 mg PO DAILY Dovato 50-300 mg tablet 1 tab PO DAILY budesonide-formoterol 160-4.5 mcg/actuation HFA aerosol inhaler 2 puff INHALATION BID aspirin 81 mg Tablet,Delayed Release (Dr/Ec) 81 mg PO DAILY 30 Days Qty: 30 0RF doxycycline monohydrate 100 mg Capsule 100 mg PO BID Qty: 20 0RF Referrals Follow up/Referrals: Lynn Mcadams MD [Primary Care Provider] - See instructions Clinical Impressions Clinical Impression: Postoperative bleeding from incision Print Language Print Language: Serbian Discharge ED Provider: Ash Rowan General Adult HPI General Chief complaint: Recheck/Abnormal Lab/Rx Stated complaint: bleeding at site defibrillator removed Time Seen by Provider: 05/14/24 20:51 Mode of Arrival: Ambulatory Source of Information: Patient Limitations: No Limitations Description of Symptoms (Recalled from ER Triage Doc. by RN): pt had a defib removed today at 3 pm, and had some oozing after procedure but a new dressing was put on before DC. pt returns with increased bleeding and oozing through the bandage. History of Present Illness HPI narrative: Please note that above description of symptoms, in this electronic medical record under categorization of recalled from ER triage doctor by RN are reflective of an initial nursing assessment, however, is not reflective of my full history and physical exam that was personally taken and clarified. Consequentially, this preceding description of symptoms, which may include the patient's categorized chief complaint in the EMR, do not reflect my personal clinical impression, and the ultimate description of history of present illness and patient stated complaints should be deferred to this section of the note. Unless stated otherwise or congruent with this section of the note, additional signs, symptoms, or incongruence should be interpreted as inaccurate with my clinical impression. Related Data Home Medications ?Medication ?Instructions ?Recorded ?Confirmed bupropion HCl 150 mg tablet,12 hr 150 mg PO DAILY 09/22/23 05/14/24 sustained-release dolutegravir 50 mg-lamivudine 300 1 tab PO DAILY 09/22/23 05/14/24 mg tablet (Dovato) donepezil 5 mg tablet 5 mg PO DAILY 09/22/23 05/14/24 ezetimibe 10 mg tablet 10 mg PO DAILY 09/22/23 05/14/24 famotidine 20 mg tablet 20 mg PO BID 09/22/23 05/14/24 fenofibrate 54 mg tablet 54 mg PO DAILY 09/22/23 05/14/24 metformin 500 mg tablet,extended 500 mg PO BID 09/22/23 05/14/24 release 24 hr methocarbamol 500 mg tablet 500 mg PO BID 09/22/23 05/14/24 mirtazapine 7.5 mg tablet 7.5 mg PO DAILY 09/22/23 05/14/24 quetiapine 100 mg tablet 100 mg PO DAILY 09/22/23 05/14/24 quetiapine 50 mg tablet 50 mg PO DAILY 09/22/23 05/14/24 tamsulosin 0.4 mg capsule 0.4 mg PO DAILY 09/22/23 05/14/24 budesonide-formoterol HFA 160 2 puff inhalation BID 09/23/23 05/14/24 mcg-4.5 mcg/actuation aerosol inhaler nitroglycerin 0.4 mg sublingual 0.4 mg sublingual Q5-15M PRN 10/01/23 05/14/24 tablet mirabegron 25 mg tablet,extended 25 mg PO DAILY 10/22/23 05/14/24 release 24 hr (Myrbetriq) oxybutynin chloride 5 mg 5 mg PO DAILY 11/12/23 05/14/24 tablet,extended release 24 hr flash glucose sensor (FreeStyle #1 ea 01/06/24 05/14/24 Kasi 2 Sensor kit) insulin glargine 100 unit/mL (3 unit SQ 01/06/24 05/14/24 mL) subcutaneous pen (Lantus Solostar U-100 Insulin) pen needle, diabetic 31 gauge x #1,200 ea 01/06/24 05/14/24 3/16 (BD Ultra-Fine Mini Pen Needle) blood sugar diagnostic (OneTouch #10 ea 02/03/24 05/14/24 Verio test strips) blood-glucose meter,continuous #1 ea 02/03/24 05/14/24 (Dexcom G7 [employer]) blood-glucose sensor (Dexcom G7 #1 ea 02/03/24 05/14/24 Sensor device) Previous Rx's ?Medication ?Instructions ?Recorded aspirin 81 mg tablet,delayed 81 mg PO DAILY 30 days #30 tabs 09/24/23 release atorvastatin 80 mg tablet 80 mg PO DAILY #90 tabs 10/01/23 empagliflozin 10 mg tablet 10 mg PO DAILY #90 tabs 10/01/23 (Jardiance) hydrochlorothiazide 25 mg tablet 25 mg PO DAILY #90 tabs 10/01/23 metoprolol succinate 25 mg 25 mg PO DAILY #90 tabs 10/01/23 tablet,extended release 24 hr pantoprazole 40 mg tablet,delayed 40 mg PO HS #90 tabs 10/01/23 release spironolactone 25 mg tablet 25 mg PO DAILY #30 tabs 10/22/23 (Aldactone) sacubitril 49 mg-valsartan 51 mg See Rx Instructions .Route 12/13/23 tablet (Entresto) .COMPLEX #180 tabs ticagrelor 90 mg tablet (Brilinta) 90 mg PO BID #180 tabs 03/26/24 doxycycline monohydrate 100 mg 100 mg PO BID 10 days #20 caps 05/04/24 capsule doxycycline monohydrate 100 mg 100 mg PO BID #20 caps 05/14/24 capsule Allergies Allergy/AdvReac Type Severity Reaction Status Date / Time amantadine Allergy Mild Verified 05/14/24 09:05 abciximab (From Reopro) Allergy Verified 05/14/24 09:05 cefaclor (From Ceclor) Allergy Verified 05/14/24 09:05 ofloxacin (From Floxin) Allergy Verified 05/14/24 09:05 Penicillins Allergy Verified 05/14/24 09:05 vancomycin Allergy Verified 05/14/24 09:05 [facility] Disclaimer: The information contained in this section may have been updated after the patient was seen, as this information can be updated by other users. Medical History Cellulitis History of pacemaker NYHA class 2 heart failure with reduced ejection fraction Thoracic aneurysm without mention of rupture Ischemic cardiomyopathy LV dysfunction Hyperlipidemia Hypertension Myocardial infarct Diabetes mellitus CVA (cerebral vascular accident) CAD (coronary artery disease) History of left heart catheterization (LHC) Surgical History AICD (automatic cardioverter/defibrillator) present H/O inguinal hernia repair History of cholecystectomy History of appendectomy History of left hip replacement History of knee replacement Family History Other No significant family history Social History Smoking Status: Never smoker alcohol intake: current current occupational status: retired Travel in the last 8 weeks: None Have you lived/traveled outside [place] in past 30 days?: No Contact w/someone who lives/traveled outside [place] past 30 days?: No Exposure to someone with infectious disease in past 14 days?: No Do you have a fever (greater than 100.4 F or 38 C)?: No Have you tested positive for COVID-19: No Exposed to someone with COVID-19 in past 14 days?: No Do you have a sore throat?: No Do you have a cough?: No Do you have any weakness?: No Do you have any diarrhea?: No Are you experiencing any unusual bleeding?: No Do you have any muscle aches/pain?: No Do you have any abdominal pain?: No Are you experiencing loss of taste or smell?: No Other Medical History Have you received the Flu Vaccine for this season: No Have you received the Pneumonia Vaccine: Yes ROS Obtained: Yes All systems reviewed & no additional complaints except as documented Physical Exam General General appearance: alert Head Head exam: atraumatic and normocephalic Eye Eye exam: Present normal appearance, PERRL and EOMI Neck Neck exam: Present normal inspection, full ROM and trachea midline Chest Chest inspection: Present other (Draining left upper chest wall with dressing in place.) Respiratory Respiratory exam: Absent respiratory distress, wheezes, stridor, accessory muscle use or prolonged expiratory phase Cardiovascular Cardiovascular exam: Present other (Pulses equal symmetric in upper and lower extremities) Abdominal Exam Abdominal exam: Present soft; Absent distention, tenderness or pulsatile mass Extremities Exam Extremities exam: Absent edema Neurological Exam Neurological exam: Present alert, oriented X3 and CN II-XII intact; Absent motor sensory deficit Skin Skin exam: Present warm and dry; Absent diaphoresis or erythema Medical Decision Making Medical Records Medical records reviewed: Yes I reviewed the patient's medical records. Screening: Per USPSTF and CDC recommendations, given the prevalence of disease in our region, it is our hospital?s policy to screen for HIV and viral Hepatitis for all patients aged 18 and over and those with ongoing risk factors. Johnny Inquiry Pt receiving controlled substance: No Johnny was queried for this patient: No Vital Signs: 05/14/24 20:45 Temperature 98.4 F Temperature Source Oral Pulse Rate [Right] 46 L Respiratory Rate 16 Blood Pressure [Right Arm] 146/76 H Blood Pressure Mean [Right Arm] 99 02 Sat by Pulse Oximetry 98 Oxygen Delivery Method Room Air Medical Decision Narrative: 69-year-old male who has numerous cardiac comorbidities presenting with left upper chest bleeding. States that he had his pacemaker defibrillator removed today. States that he has been oozing since that time. No lightheadedness, nausea, vomiting, fevers, chills, purulence from the area. History obtained the patient. On arrival, very well-appearing. He has wound dressing in place in left upper chest. I told patient I would return to evaluate the chest wound with wound dressing supplies in order to redress it and clean it. Emergency department incredibly busy, as sole provider I was tending to numerous other emergencies. Patient eloped after less than an hour after check-in. Rendering Equipment Tender disclaimer Much of this encounter note is an electronic floral specialist spoken language to printed text. Electronic floral specialist of the spoken language may permit errors. Although I have reviewed the note, some errors may still exist. Critical Care Critical Care Time Critical Care Time: No
[2024-05-14 21:51] VITALS: BP 146/96; PULSE 68; RESP 16; TEMP 36.7; O2SAT 99
== END 2024-05-14 21:45 | disposition left against medical advice (07) ==
PROVIDERS: Emergency Provider Emergency Medicine; PCP Internal Medicine
DX: Z53.20 Procedure and treatment not carried out because of patient's decision for unspecified reasons (principal); T81.89XA Other complications of procedures, not elsewhere classified, initial encounter
CPT/HCPCS: 99282

== ENCOUNTER 2024-05-15 12:44 | Outpatient (CLI) | payer MEDICARE, MEDICAID, SELFPAY | END 2024-05-15 12:55 | disposition home or self-care (01) | LOC: INF 12:44 | PROVIDERS: PCP Internal Medicine; Visit Provider Internal Medicine | DX: Z48.00 Encounter for change or removal of nonsurgical wound dressing (principal) | CPT/HCPCS: G0463 ==

== ENCOUNTER 2024-05-16 09:38 | Outpatient (CLI) | payer MEDICARE, MEDICAID, SELFPAY ==
[2024-05-16 10:00] VITALS: BP 138/82; PULSE 87; RESP 18; O2SAT 97
== END 2024-05-16 10:15 | disposition home or self-care (01) ==
LOC: INF 09:39
PROVIDERS: PCP Nurse Practitioner Family; Visit Provider Internal Medicine
DX: Z48.00 Encounter for change or removal of nonsurgical wound dressing (principal)
CPT/HCPCS: G0463

== ENCOUNTER 2024-05-17 06:31 | Outpatient (CLI) | payer MEDICARE, MEDICAID, SELFPAY | END 2024-05-17 23:59 | disposition home or self-care (01) | LOC: INF 06:34 | PROVIDERS: PCP Internal Medicine; Visit Provider Internal Medicine | DX: Z48.00 Encounter for change or removal of nonsurgical wound dressing (principal) ==

== ENCOUNTER 2024-05-18 10:58 | Outpatient (CLI) | payer MEDICARE, MEDICAID, SELFPAY | END 2024-05-18 23:59 | disposition home or self-care (01) | LOC: INF 10:59 | PROVIDERS: PCP Internal Medicine; Visit Provider Internal Medicine | DX: L03.818 Cellulitis of other sites (principal) ==

== ENCOUNTER 2024-05-19 10:09 | Outpatient (CLI) | payer MEDICARE, MEDICAID, SELFPAY | END 2024-05-19 10:20 | disposition home or self-care (01) | LOC: INF 10:10 | PROVIDERS: PCP Internal Medicine; Visit Provider Internal Medicine | DX: L03.818 Cellulitis of other sites (principal) | CPT/HCPCS: G0463 ==

== ENCOUNTER 2024-05-20 09:45 | Outpatient (CLI) | payer MEDICARE, MEDICAID, SELFPAY | END 2024-05-20 09:55 | disposition home or self-care (01) | LOC: INF 09:46 | PROVIDERS: PCP Internal Medicine; Visit Provider Internal Medicine | DX: L03.90 Cellulitis, unspecified (principal) | CPT/HCPCS: G0463 ==

== ENCOUNTER 2024-05-21 09:37 | Outpatient (CLI) | payer MEDICARE, MEDICAID, SELFPAY | END 2024-05-21 10:00 | disposition home or self-care (01) | LOC: INF 09:38 | PROVIDERS: Visit Provider Internal Medicine | DX: Z48.00 Encounter for change or removal of nonsurgical wound dressing (principal) | CPT/HCPCS: G0463 ==

== ENCOUNTER 2024-05-22 09:37 | Outpatient (CLI) | payer MEDICARE, MEDICAID, SELFPAY | END 2024-05-22 10:10 | disposition home or self-care (01) | LOC: INF 09:37 | PROVIDERS: PCP Internal Medicine; Visit Provider Internal Medicine | DX: Z48.00 Encounter for change or removal of nonsurgical wound dressing (principal) | CPT/HCPCS: G0463 ==

== ENCOUNTER 2024-05-23 09:40 | Outpatient (CLI) | payer MEDICARE, MEDICAID, SELFPAY | END 2024-05-23 23:59 | disposition home or self-care (01) | LOC: INF 09:40 | PROVIDERS: PCP Internal Medicine Cardiovascular Disease; Visit Provider Internal Medicine | DX: L03.818 Cellulitis of other sites (principal) | CPT/HCPCS: G0463 ==

== ENCOUNTER 2024-05-24 10:06 | Outpatient (CLI) | payer MEDICARE, MEDICAID, SELFPAY | END 2024-05-24 23:59 | disposition home or self-care (01) | LOC: INF 10:06 | PROVIDERS: PCP Internal Medicine Cardiovascular Disease; Visit Provider Internal Medicine | DX: L03.818 Cellulitis of other sites (principal) | CPT/HCPCS: G0463 ==

== ENCOUNTER 2024-05-25 10:15 | Outpatient (CLI) | payer MEDICARE, MEDICAID, SELFPAY | END 2024-05-25 10:40 | disposition home or self-care (01) | LOC: INF 10:16 | PROVIDERS: PCP Internal Medicine; Visit Provider Internal Medicine | DX: L03.818 Cellulitis of other sites (principal) | CPT/HCPCS: G0463 ==

== ENCOUNTER 2024-05-26 09:55 | Outpatient (CLI) | payer MEDICARE, MEDICAID, SELFPAY ==
--- NOTE | 2024-05-26 10:19 | PC.NURSE ---
cleaned area with saline- packed with dry 4x4 and covered with abd pad- no s/s infection; healing well
== END 2024-05-26 10:23 | disposition home or self-care (01) ==
PROVIDERS: Visit Provider Internal Medicine
DX: L03.818 Cellulitis of other sites (principal)
CPT/HCPCS: G0463

== ENCOUNTER 2024-05-27 08:10 | Outpatient (CLI) | payer MEDICARE, MEDICAID, SELFPAY | END 2024-05-27 08:25 | disposition home or self-care (01) | LOC: INF 08:13 | PROVIDERS: PCP Internal Medicine; Visit Provider Internal Medicine | DX: L03.818 Cellulitis of other sites (principal) | CPT/HCPCS: G0463 ==

== ENCOUNTER 2024-05-28 10:02 | Outpatient (CLI) | payer MEDICARE, MEDICAID, SELFPAY | END 2024-05-28 11:50 | disposition home or self-care (01) | LOC: INF 10:03 | PROVIDERS: PCP Internal Medicine; Visit Provider Internal Medicine | DX: L03.818 Cellulitis of other sites (principal) | CPT/HCPCS: G0463 ==

== ENCOUNTER 2024-05-29 08:46 | Outpatient (CLI) | payer MEDICARE, MEDICAID, SELFPAY | END 2024-05-29 09:05 | disposition home or self-care (01) | PROVIDERS: PCP Internal Medicine; Visit Provider Internal Medicine | DX: L03.818 Cellulitis of other sites (principal) | CPT/HCPCS: G0463 ==

== ENCOUNTER 2024-05-30 10:04 | Outpatient (CLI) | payer MEDICARE, MEDICAID, SELFPAY | END 2024-05-30 23:59 | disposition home or self-care (01) | PROVIDERS: PCP Internal Medicine; Visit Provider Internal Medicine | DX: L03.818 Cellulitis of other sites (principal) | CPT/HCPCS: G0463 ==

== ENCOUNTER 2024-05-31 09:42 | Outpatient (CLI) | payer MEDICARE, MEDICAID, SELFPAY | END 2024-05-31 10:24 | disposition home or self-care (01) | LOC: INF 09:43 | PROVIDERS: PCP Internal Medicine; Visit Provider Internal Medicine | DX: L03.818 Cellulitis of other sites (principal) | CPT/HCPCS: G0463 ==

== ENCOUNTER 2024-06-01 10:29 | Outpatient (CLI) | payer MEDICARE, MEDICAID, SELFPAY | END 2024-06-01 11:12 | disposition home or self-care (01) | LOC: INF 10:30 | PROVIDERS: PCP Internal Medicine; Visit Provider Internal Medicine | DX: T82.7XXA Infection and inflammatory reaction due to other cardiac and vascular devices, implants and grafts, initial encounter (principal) | CPT/HCPCS: G0463 ==

== ENCOUNTER 2024-06-02 09:34 | Outpatient (CLI) | payer MEDICARE, MEDICAID, SELFPAY | END 2024-06-02 09:45 | disposition home or self-care (01) | LOC: INF 09:36 | PROVIDERS: PCP Internal Medicine; Visit Provider Internal Medicine | DX: T82.7XXD Infection and inflammatory reaction due to other cardiac and vascular devices, implants and grafts, subsequent encounter (principal) | CPT/HCPCS: G0463 ==

== ENCOUNTER 2024-06-03 09:42 | Outpatient (CLI) | payer MEDICARE, MEDICAID, SELFPAY | END 2024-06-03 10:00 | disposition home or self-care (01) | LOC: INF 09:42 | PROVIDERS: PCP Internal Medicine; Visit Provider Internal Medicine | DX: T82.7XXD Infection and inflammatory reaction due to other cardiac and vascular devices, implants and grafts, subsequent encounter (principal) | CPT/HCPCS: G0463 ==

== ENCOUNTER 2024-06-04 09:48 | Outpatient (CLI) | payer MEDICARE, MEDICAID, SELFPAY | END 2024-06-04 11:19 | disposition home or self-care (01) | LOC: INF 09:49 | PROVIDERS: PCP Internal Medicine; Visit Provider Internal Medicine | DX: T82.7XXD Infection and inflammatory reaction due to other cardiac and vascular devices, implants and grafts, subsequent encounter (principal) | CPT/HCPCS: G0463 ==

== ENCOUNTER 2024-06-05 09:44 | Outpatient (CLI) | payer MEDICARE, MEDICAID, SELFPAY | END 2024-06-05 10:00 | disposition home or self-care (01) | LOC: INF 09:44 | PROVIDERS: PCP Internal Medicine; Visit Provider Internal Medicine | DX: T82.7XXA Infection and inflammatory reaction due to other cardiac and vascular devices, implants and grafts, initial encounter (principal) | CPT/HCPCS: G0463 ==

== ENCOUNTER 2024-06-06 09:46 | Outpatient (CLI) | payer MEDICARE, MEDICAID, SELFPAY | END 2024-06-06 23:59 | disposition home or self-care (01) | LOC: INF 09:47 | PROVIDERS: PCP Internal Medicine; Visit Provider Internal Medicine | DX: T82.7XXA Infection and inflammatory reaction due to other cardiac and vascular devices, implants and grafts, initial encounter (principal) | CPT/HCPCS: G0463 ==

== ENCOUNTER 2024-06-07 10:05 | Outpatient (CLI) | payer MEDICARE, MEDICAID, SELFPAY | END 2024-06-07 23:59 | disposition home or self-care (01) | LOC: INF 10:06 | PROVIDERS: PCP Internal Medicine; Visit Provider Internal Medicine | DX: T82.7XXA Infection and inflammatory reaction due to other cardiac and vascular devices, implants and grafts, initial encounter (principal) | CPT/HCPCS: G0463 ==

== ENCOUNTER 2024-06-08 09:55 | Outpatient (CLI) | payer MEDICARE, MEDICAID, SELFPAY | END 2024-06-08 10:46 | disposition home or self-care (01) | LOC: INF 09:55 | PROVIDERS: PCP Internal Medicine; Visit Provider Internal Medicine | DX: T82.7XXA Infection and inflammatory reaction due to other cardiac and vascular devices, implants and grafts, initial encounter (principal) | CPT/HCPCS: G0463 ==

== ENCOUNTER 2024-06-09 09:57 | Outpatient (CLI) | payer MEDICARE, MEDICAID, SELFPAY | END 2024-06-09 10:15 | disposition home or self-care (01) | LOC: INF 09:58 | PROVIDERS: PCP Internal Medicine; Visit Provider Internal Medicine Adolescent Medicine | DX: T82.7XXA Infection and inflammatory reaction due to other cardiac and vascular devices, implants and grafts, initial encounter (principal) | CPT/HCPCS: G0463 ==

== ENCOUNTER 2024-06-10 10:12 | Outpatient (CLI) | payer MEDICARE, MEDICAID, SELFPAY | END 2024-06-10 10:30 | disposition home or self-care (01) | LOC: INF 10:14 | PROVIDERS: PCP Internal Medicine; Visit Provider Internal Medicine | DX: T82.7XXA Infection and inflammatory reaction due to other cardiac and vascular devices, implants and grafts, initial encounter (principal) | CPT/HCPCS: G0463 ==

== ENCOUNTER 2024-06-11 10:11 | Outpatient (CLI) | payer MEDICARE, MEDICAID, SELFPAY | END 2024-06-11 10:40 | disposition home or self-care (01) | LOC: INF 10:13 | PROVIDERS: Visit Provider Internal Medicine | DX: T82.7XXA Infection and inflammatory reaction due to other cardiac and vascular devices, implants and grafts, initial encounter (principal) | CPT/HCPCS: G0463 ==

== ENCOUNTER 2024-06-12 10:35 | Outpatient (CLI) | payer MEDICARE, MEDICAID, SELFPAY | END 2024-06-12 11:19 | disposition home or self-care (01) | LOC: INF 10:36 | PROVIDERS: PCP Internal Medicine; Visit Provider Internal Medicine | DX: T82.7XXA Infection and inflammatory reaction due to other cardiac and vascular devices, implants and grafts, initial encounter (principal) | CPT/HCPCS: G0463 ==

== ENCOUNTER 2024-06-13 10:31 | Outpatient (CLI) | payer MEDICARE, MEDICAID, SELFPAY | END 2024-06-13 11:00 | disposition home or self-care (01) | LOC: INF 10:32 | PROVIDERS: PCP Internal Medicine; Visit Provider Internal Medicine | DX: T82.7XXA Infection and inflammatory reaction due to other cardiac and vascular devices, implants and grafts, initial encounter (principal) | CPT/HCPCS: G0463 ==

== ENCOUNTER 2024-06-15 10:02 | Outpatient (CLI) | payer MEDICARE, MEDICAID, SELFPAY | END 2024-06-15 12:15 | disposition home or self-care (01) | PROVIDERS: PCP Internal Medicine; Visit Provider Internal Medicine | DX: T82.7XXA Infection and inflammatory reaction due to other cardiac and vascular devices, implants and grafts, initial encounter (principal) | CPT/HCPCS: G0463 ==

== ENCOUNTER 2024-06-16 10:13 | Outpatient (CLI) | payer MEDICARE, MEDICAID, SELFPAY | END 2024-06-16 10:25 | disposition home or self-care (01) | LOC: INF 10:14 | PROVIDERS: PCP Internal Medicine; Visit Provider Internal Medicine | DX: T82.7XXA Infection and inflammatory reaction due to other cardiac and vascular devices, implants and grafts, initial encounter (principal) | CPT/HCPCS: G0463 ==

== ENCOUNTER 2024-06-18 10:08 | Outpatient (CLI) | payer MEDICARE, MEDICAID, SELFPAY | END 2024-06-18 10:18 | disposition home or self-care (01) | LOC: INF 10:09 | PROVIDERS: PCP Internal Medicine; Visit Provider Internal Medicine | DX: T82.7XXA Infection and inflammatory reaction due to other cardiac and vascular devices, implants and grafts, initial encounter (principal) | CPT/HCPCS: G0463 ==

== ENCOUNTER 2024-07-21 09:49 | Day surgery (SDC) | payer MEDICARE, MEDICAID, SELFPAY ==
[2024-07-21] VITALS (9 sets, daily range): BP systolic 106–124; BP diastolic 53–76; PULSE 60–88; RESP 16–22; O2SAT 93–98; BMI 30.2
--- NOTE | 2024-07-21 07:15 | IR_ITS ---
APPROVED REPORT Patient Location: Outpatient PROCEDURES 1. Pocket formation for AICD. 2. Placement of atrial sensing and pacing coil into the right atrial appendage. 3. Placement of a ventricular sensing, pacing and shocking coil in the right ventricular apex. 4. Permanent AICD placement. INDICATION Systolic Congestive Heart Failure, ejection < 35%, [place] Heart Assoication Class 3 Congestive Heart Failure Informed consent was obtained prior to the procedure. COMPLICATIONS NONE Estimated Blood Loss: LESS THAN 10 ML TECHNIQUE 1% Lidocaine with epinephrine used to anesthetized the right anterior aspect of the chest. Scalpel was used to make the initial cutaneous incision while electrocautery was used to dissect down tinto the fascia. The fascia was lifted off the pectoralis muscle and digitally manipulated creating a pocket for the defibrillator. The patient was then placed in Trendelenburg position and the subclavian vein was accessed 2 times via the Selinger technique. A 8 [place] sheath was placed under fluoroscopic guidance into the subclavian vein. The dilator was removed from the sheath. Using fluoroscopic guidance, the ventricular lead was placed into the right ventricular apex, screwed and secured into place. Electronic interrogation proved acceptable thresholds and voltage within the lead. Using 3-0 silk, the ventricular lead was then secured into place and sheath peeled away. A 6 [place] fresh sheath and dilator was placed over the existing wire. Using fluoroscopic guidance, the atrial lead was then placed into the right atrial appendage and screwed and secured in place. Electrical interrogation demonstrated acceptable thresholds and voltage number. The atrial lead was then secured into place using 3-0 silk and sheath peeled away. 1 gram of Ancef was used to flush the pocket. All 3 leads were connected to generator and tested via computer. The defibrillator then secured to the fascia. Monocryl was used to close the subcutaneous layers while sherri were used to close the cutaneous layer. A pressure dressing was placed and the patient was transferred to the postop holding area in stable condition for postoperative care. INTERROGATION Generator Model number: Chel MEDINA [id number] Generator Serial number: [id number] Atrial lead model number: Tendril STS [id number] Atrial lead serial number: [id number] P-wave: 4.7 mV Impedance: 590 Ohms Threshold: 1.25V @ 0.5ms Right Ventricular lead model number: Louise [id number] Right Ventricular lead serial number: [id number] R-wave: 12 mV Impedance: 650 Ohms Threshold: 0.75V @ 0.5ms High Voltage Impedance: 53 Ohms Pacing Parameters: Mode: DDI Base/Max Track:60 ppm / 130 ppm No diaphragmatic stimulation at 10 volts. IMPRESSION 1. Successful pocket formation for AICD. 2. Successful placement of atrial sensing and pacing coil into the right atrial appendage. 3. Successful placement of a ventricular sensing, pacing and shocking coil in the right ventricular apex. 4. Successful permanent AICD placement. PLAN 1. Postop wound care. Electronically signed by : Vinh Gutierrez MD 07/21/2024 14:35:45
[2024-07-21 10:25] LABS: Basophils # 0.1 K/mm3 (0-0.2); Basophils % 0.9 % (0.1-2.0); Eosinophils # 0.1 K/mm3 (0.0-0.4); Eosinophils % 1.4 % (0.1-12.0); Hematocrit 50.1 % (42.0-52.0); Hemoglobin 16.7 g/dL (14.1-18.0); Lymphocytes # 2.5 K/mm3 (0.7-4.5); Lymphocytes % 35.4 % (10-50); Mean Corpuscular HGB Conc 33.3 g/dL (31.8-35.4); Mean Corpuscular Hemoglobin 27.2 pg (27.0-31.2); Mean Corpuscular Volume 81.6 fl (80-94); Mean Platelet Volume 10.4 fl (7.4-10.4); Monocytes # 0.7 K/mm3 (0.1-1.0); Monocytes % 10.4 % (1.7-9.3); Neutrophils # 3.6 K/mm3 (1.8-7.8); Neutrophils % 51.3 % (37.0-80.0); Platelet Count 211 K/mm3 (142-424); Red Blood Count 6.14 M/mm3 (4.60-6.20); White Blood Count 6.9 K/mm3 (4.8-10.8)
--- NOTE | 2024-07-21 10:32 | P.PNANES_ITS ---
[facility] Disclaimer: The information contained in this section may have been updated after the patient was seen, as this information can be updated by other users. 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 Thoracic aneurysm without mention of rupture Ischemic cardiomyopathy LV dysfunction Hyperlipidemia Hypertension Myocardial infarct Diabetes mellitus CVA (cerebral vascular accident) CAD (coronary artery disease) History of left heart catheterization (LHC) Surgical History AICD (automatic cardioverter/defibrillator) present H/O inguinal hernia repair History of cholecystectomy History of appendectomy History of left hip replacement History of knee replacement Family History Other No significant family history Social History Smoking Status: Never smoker alcohol intake: current substance use type: denies use current occupational status: retired Travel in the last 8 weeks: None [facility] Anesthesia Checklist Patient Identification Patient Identification: Arm Band Structural Data Admitted From: Home Planned Operative Procedure/s: AICD Placement Consent for Planned Operative Procedure(s) Verified: Yes Verified Documents: Surgical Consent and History and Physical NPO Status Verified Time NPO: 00:00 Additional verifications Anesthesia Reactions: No Hx Blood Transfusions: No Blood Transfusion Reaction: No Airway Assessment Mallampati Score:: Class II C-Spine Mobility Assessed: Yes TMJ Mobility Assessed: Yes Neurological Assessment Level of Consciousness: Awake, Alert and Appropriate Anesthesia Plan Anesthesia Risk discussed: Yes Anesthesia Plan: Verified ASA Class: IV Anesthesia Type: MAC
[2024-07-21 11:03] LABS: Chloride 101 mmol/L (98-107); Potassium 4.2 mmoL/L (3.5-5.1); Sodium 135 mmol/L (136-145)
[2024-07-21 11:06] LABS: Blood Urea Nitrogen 42 mg/dl (9-20); Creatinine Clearance Estimated 56 mL/min (50-200); Estimated Glomerular Filt Rate 46 ml/min (>60); GFR (African American) 56 ML/MIN (>60)
[2024-07-21 11:07] LABS: Anion Gap 15.2 mEq/L (5-15); Calcium 9.7 mg/dl (8.4-10.2); Carbon Dioxide 23 mmol/L (22.0-30.0); Glucose 178 mg/dl (74-100)
[2024-07-21] MEDS: LIDOCAINE 1% W/EPI 1:100,000 20ML VIAL 20 ML SQ (11:27)
[2024-07-21] MEDS: CLINDAMYCIN PHOSPHATE 900 MG in 0.9 % SODIUM CHLORIDE 100 ML 100 MG TP (11:28)
[2024-07-21] MEDS: CLINDAMYCIN PHOSPHATE/D5W 900 MG/50 ML PIGGYBACK 100 MG IV (11:28)
[2024-07-21] MEDS: diphenhydrAMINE 50MG/ML VIAL 50 MG IV (11:28)
[2024-07-21] MEDS: 0.9 % SODIUM CHLORIDE 1000ML 1,000 ML 25 ML IV (11:29)
--- NOTE | 2024-07-21 13:01 | XR_ITS ---
FINAL REPORT CLINICAL HISTORY: post aicd COMPARISON: 04/03/2024 FINDINGS: CHEST FRONTAL VIEW: A single frontal view of the chest was obtained. The previous left AICD device has been explanted since the prior exam, and a right AICD device is now present. No evidence of pneumothorax is seen. No confluent infiltrates or effusions are noted. IMPRESSION: No evident infiltrate or effusion is identified after positioning of a right AICD device. Reviewed, Interpreted and Dictated by Dima Freitas MD Transcribed by Aline Dorado Authenticated and [facility]
== END 2024-07-21 14:39 | disposition home or self-care (01) ==
PROVIDERS: Visit Provider Internal Medicine
PROC: 0JH608Z Insertion of Defibrillator Generator into Chest Subcutaneous Tissue and Fascia, Open Approach (ICD-10-PCS; CPT 33249; principal; 2024-07-21 09:00)
DX: T82.7XXA Infection and inflammatory reaction due to other cardiac and vascular devices, implants and grafts, initial encounter (principal); I11.0 Hypertensive heart disease with heart failure; I50.22 Chronic systolic (congestive) heart failure; I25.5 Ischemic cardiomyopathy; I71.20 Thoracic aortic aneurysm, without rupture, unspecified; E11.9 Type 2 diabetes mellitus without complications; E78.5 Hyperlipidemia, unspecified; I25.10 Atherosclerotic heart disease of native coronary artery without angina pectoris; Z21 Asymptomatic human immunodeficiency virus [HIV] infection status; R94.31 Abnormal electrocardiogram [ECG] [EKG]; I25.2 Old myocardial infarction; Z86.73 Personal history of transient ischemic attack (TIA), and cerebral infarction without residual deficits; F17.200 Nicotine dependence, unspecified, uncomplicated; Z79.82 Long term (current) use of aspirin; Z79.2 Long term (current) use of antibiotics; Z79.84 Long term (current) use of oral hypoglycemic drugs; Z79.4 Long term (current) use of insulin; Z79.51 Long term (current) use of inhaled steroids; Z79.899 Other long term (current) drug therapy; Z79.02 Long term (current) use of antithrombotics/antiplatelets; Z95.5 Presence of coronary angioplasty implant and graft; Z88.1 Allergy status to other antibiotic agents; Z88.0 Allergy status to penicillin; Z88.8 Allergy status to other drugs, medicaments and biological substances; Y84.8 Other medical procedures as the cause of abnormal reaction of the patient, or of later complication, without mention of misadventure at the time of the procedure
CPT/HCPCS: 33249; 71045; 80048; 85025; C1721; C1895; C1898; J0736; J1200; J7030

== ENCOUNTER 2024-08-14 12:49 | Day surgery (SDC) | payer MEDICARE, MEDICAID, SELFPAY ==
[2024-08-14] VITALS (7 sets, daily range): BP systolic 94–153; BP diastolic 50–86; PULSE 75–85; RESP 16–20; O2SAT 76–99; BMI 29.7
[2024-08-14] MEDS: 0.9 % SODIUM CHLORIDE 1000ML 1,000 ML 25 ML IV (13:35)
[2024-08-14] MEDS: CLINDAMYCIN PHOSPHATE/D5W 900 MG/50 ML PIGGYBACK 100 MG IV (13:35)
[2024-08-14] MEDS: FENTANYL 100MCG/2ML VIAL 50 MCG IV (14:47)
[2024-08-14] MEDS: MIDAZOLAM HCL 1MG/ML 5ML VIAL 1 MG IV (14:47)
[2024-08-14] MEDS: PROPOFOL 10MG/ML 20ML VIAL 40 MG IV (14:48)
--- NOTE | 2024-08-18 12:09 | P.PCN_ITS ---
[facility] Procedure Note Date: 08/14/24 Time: 14:15 Procedure Note:: Procedure: Incision and drainage of postoperative hematoma Indication: Hematoma Technique sedation IV sedation was provided and a 10 blade scalpel was used to make an elliptical incision on a punctate area of fluctuance. A large hematoma of approximately 40 cc of chalky blood was removed. At the end of the procedure Steri-Strips were applied and a bandage was discharged home on Bactrim double strength 2 tablets twice daily Impression successful and drainage of postoperative hematoma Plan: Continue antibiotics and report to cardiology clinic for further evaluation
== END 2024-08-14 15:28 | disposition home or self-care (01) ==
PROVIDERS: PCP Specialist; Visit Provider Internal Medicine
PROC: (CPT 10140; principal; 2024-08-14 12:15)
DX: T82.897A Other specified complication of cardiac prosthetic devices, implants and grafts, initial encounter (principal); L76.32 Postprocedural hematoma of skin and subcutaneous tissue following other procedure; E11.9 Type 2 diabetes mellitus without complications; I11.0 Hypertensive heart disease with heart failure; I50.20 Unspecified systolic (congestive) heart failure; I25.2 Old myocardial infarction; I25.10 Atherosclerotic heart disease of native coronary artery without angina pectoris; I25.5 Ischemic cardiomyopathy; Z21 Asymptomatic human immunodeficiency virus [HIV] infection status; Y83.1 Surgical operation with implant of artificial internal device as the cause of abnormal reaction of the patient, or of later complication, without mention of misadventure at the time of the procedure; Y71.0 Diagnostic and monitoring cardiovascular devices associated with adverse incidents
CPT/HCPCS: 10140; 87070; 87077; 87186; 87205; 99152; J0736; J3010; J7030